=== PATIENT | female | born 1955 | race Caucasian/White ===

== ENCOUNTER 2019-11-01 10:58 | Outpatient (CLI) | payer OTHER, SELFPAY ==
--- NOTE | ~2019-11-01 | XR_ITS ---
XR lumbar spine 2-3V 11/01/2019 11:22 Indication: Low back pain Procedure: 3 views lumbar spine Comparison: 08/07/2008 Findings: There is grade 1 degenerative spondylolisthesis at L4-5. Vertebral body and disc heights ar e preserved. There is mild-moderate facet hypertrophy at L4-5 and L5-S1. No acute fracture or traumat ic malalignment. Impression: 1: No significant change to mild-moderate lower lumbar spondylosis. Reviewed, dictated and finalized at location A. Impression: 1: No significant change to mild-moderate lower lumbar spondylosis.
--- NOTE | ~2019-11-01 | XR_ITS ---
XR sacrum coccyx min 2V 11/01/2019 11:22 Indication: Low back pain Procedure: 3 views lumbar spine Comparison: No prior studies for comparison. Findings: Sacral foramen are symmetric. There are mild symmetric degenerative changes of the sacroili ac joints. Mild lower lumbar spondylosis. No fracture or traumatic malalignment. Impression: 1: No acute abnormality of the sacrum/coccyx. Reviewed, dictated and finalized at location A. Impression: 1: No acute abnormality of the sacrum/coccyx.
== END 2019-11-01 10:59 | disposition home or self-care (01) ==
LOC: ANHIMG 11:03
PROVIDERS: PCP Internal Medicine; Visit Provider Internal Medicine
DX: M54.5 Low back pain (principal); G89.29 Other chronic pain; M47.816 Spondylosis without myelopathy or radiculopathy, lumbar region
CPT/HCPCS: 72100; 72220

== ENCOUNTER 2019-11-17 12:31 | Outpatient (CLI) | payer OTHER, SELFPAY ==
--- NOTE | ~2019-11-17 | MR_ITS ---
EXAMINATION: MR lumbar spine wo con EXAM DATE: 11/17/2019 14:18 INDICATION: Low back pain, sciatica left-sided. Left leg numbness. TECHNIQUE: Multi-sequential, multiplanar MR images of the lumbar spine were obtained without contrast . Sagittal T1, T2, T2 fat saturation images. Axial T2 weighted images. Comparison is made to prior examination from 09/28/2011. FINDINGS: There is 3 mm anterolisthesis L4 on L5. Mild diffuse loss of vertebral body heights central ly. Small Schmorl's nodes at T12-L1 and L1-2. No acute compression fractures. The conus medullaris te rminates at the L1 level and has normal signal intensity and morphology. There are no suspicious mar row signal abnormalities. Paraspinal soft tissue is unremarkable. Level by level evaluation: T12-L1: Disc does not extend beyond the endplate margin. Facet arthropathy: Mild. Neural foraminal stenosis: No stenosis. Central canal stenosis: No stenosis. L1-L2: Disc does not extend beyond the endplate margin. Facet arthropathy: Minimal. Neural foraminal stenosis: No stenosis. Central canal stenosis: No stenosis. L2-L3: There is a minimal diffuse disc bulge. Facet arthropathy: Mild. Neural foraminal stenosis: No stenosis. Central canal stenosis: No stenosis. L3-L4: There is a mild diffuse disc bulge. Facet arthropathy: Moderate . Ligamentum flavum enlargement. Neural foraminal stenosis: Mild right. Central canal stenosis: Mild to moderate. L4-L5: There is a moderate diffuse disc bulge. Facet arthropathy: Severe . Ligamentum flavum enlargement. Neural foraminal stenosis: Mild to moderate bilateral. Central canal stenosis: Severe. L5-S1: There is a mild diffuse disc bulge. Facet arthropathy: Mild to moderate. Neural foraminal stenosis: Moderate right, mild to moderate left. Central canal stenosis: Mild. Compared to 2012, mild interval progression in the spondylosis, and the severe central canal stenosis at L4-5. IMPRESSION: 1. L4-5 severe central canal stenosis. 2. Otherwise mild to moderate lumbar spondylosis. Reviewed, dictated and finalized at location A.
== END 2019-11-17 12:32 | disposition home or self-care (01) ==
PROVIDERS: PCP Internal Medicine; Visit Provider Internal Medicine
DX: M54.42 Lumbago with sciatica, left side (principal); G89.29 Other chronic pain; M47.816 Spondylosis without myelopathy or radiculopathy, lumbar region; M48.061 Spinal stenosis, lumbar region without neurogenic claudication
CPT/HCPCS: 72148

== ENCOUNTER 2020-07-25 08:14 | Outpatient (CLI) | payer OTHER, SELFPAY ==
--- NOTE | ~2020-07-25 | MM_ITS ---
EXAMINATION: MM screening [facility] BI w [facility] HISTORY: Screening TECHNIQUE: Craniocaudal and mediolateral oblique 3-D tomosynthesis images were obtained and synthetic 2-D images were generated. CAD analysis was submitted and interpreted. COMPARISON: Comparison to multiple prior studies sequentially, with oldest reviewed study dated 02/09. BREAST PARENCHYMAL COMPOSITION: The breasts are heterogenously dense, which may obscure small masses. FINDINGS: There is no evidence of suspicious mass, calcification, or architectural distortion to sugg est malignancy in either breast. There has been no suspicious interval change. IMPRESSION: 1. No mammographic evidence of malignancy. 2. Recommend routine screening mammography in one year. BI-RADS Category 1: Negative Reviewed, dictated and finalized at location A. BALL COACH
== END 2020-07-25 08:15 | disposition home or self-care (01) ==
LOC: ANHIMG 08:17
PROVIDERS: PCP Internal Medicine; Visit Provider Advanced Practice Midwife
DX: Z12.31 Encounter for screening mammogram for malignant neoplasm of breast (principal)
CPT/HCPCS: 77063; 77067

== ENCOUNTER 2020-10-12 07:30 | Outpatient (CLI) | payer OTHER, SELFPAY ==
--- NOTE | ~2020-10-12 | MR_ITS ---
EXAMINATION: MR lumbar spine wo con DATE: 10/12/2020 08:22 INDICATION: Spondylolisthesis at L4-L5. Back pain. TECHNIQUE: Magnetic resonance imaging (MRI) of the lumbar spine was performed without intravenous con trast. Sequences included sagittal T2-weighted FSE, sagittal T2-weighted FS FSE, sagittal T1-weighted FSE, and axial T2-weighted FSE. COMPARISON: Lumbar spine MRI 11/17/2019 FINDINGS: There is 6 degrees dextrocurvature of thoracolumbar spine. There is 4 mm anterolisthesis of L4 on L5. There are Schmorl's nodes of the inferior endplates of T12 and L1 vertebral bodies. Interv ertebral disc heights are normal. The distal spinal cord signal intensity is normal. The conus medull vladimir is at L1. There is a 12 mm cyst in left kidney. The following disc levels are specifically discu ssed: L1-L2: The disc does not extend beyond the endplate margin. There is no facet joint osteoarthritis. T here is no neural foraminal stenosis. There is no central canal stenosis. L2-L3: There is a right foraminal protrusion. There is mild bilateral facet joint osteoarthritis. The re is mild right neural foraminal stenosis. There is no central canal stenosis. L3-L4: The disc is bulging. There is severe bilateral facet joint osteoarthritis. There is hypertroph y of the ligamentum flavum. There is mild bilateral neural foraminal stenosis. There is mild central canal stenosis. L4-L5: The disc is bulging and has an annular fissure. There is severe bilateral facet joint osteoart hritis. There is hypertrophy of the ligamentum flavum. There is moderate right and mild left neural f oraminal stenosis. There is severe central canal stenosis. L5-S1: The disc is bulging. There is severe right and moderate left facet joint osteoarthritis. There is mild bilateral neural foraminal stenosis. There is mild central canal stenosis. IMPRESSION: 1. Persistent severe central canal stenosis at L4-L5. 2. Stable otherwise moderate lumbar spondylosis. Reviewed, dictated and finalized at location B.
== END 2020-10-12 07:31 | disposition home or self-care (01) ==
PROVIDERS: PCP Internal Medicine; Visit Provider Neurological Surgery
DX: M43.16 Spondylolisthesis, lumbar region (principal); M47.896 Other spondylosis, lumbar region
CPT/HCPCS: 72148

== ENCOUNTER 2020-10-21 13:42 | Outpatient (CLI) | payer OTHER, SELFPAY ==
--- NOTE | ~2020-10-21 | US_ITS ---
US renal BI 10/21/2020 14:18 Procedure: Realtime transabdominal ultrasound of the kidneys and bladder. Indication: Renal cysts Comparison: MRI dated 10/12/2020 Findings: Renal echotexture is normal bilaterally without hydronephrosis, contour deforming mass or r enal calculus. The right kidney measures 8.7 cm and left kidney measures 10.8 cm. There is a 1.3 cm l eft renal cyst. Bladder within normal limits. Impression: 1: Left renal cyst measuring 1.3 cm. Reviewed, dictated and finalized at location B. Impression: 1: Left renal cyst measuring 1.3 cm.
== END 2020-10-21 13:43 | disposition home or self-care (01) ==
PROVIDERS: PCP Internal Medicine; Visit Provider Internal Medicine
DX: N28.1 Cyst of kidney, acquired (principal)
CPT/HCPCS: 76775

== ENCOUNTER → 2021-02-13 08:34 | Outpatient (CLI) | payer OTHER, SELFPAY ==
[2021-02-14 06:40] LABS: SARS-CoV-2 RNA PCR Negative
== END ==
PROVIDERS: PCP Internal Medicine; Visit Provider Internal Medicine
DX: R68.89 Other general symptoms and signs (principal); Z20.822 Contact with and (suspected) exposure to COVID-19
CPT/HCPCS: C9803; U0003; U0005

== ENCOUNTER 2021-05-14 14:40 | Outpatient (CLI) | payer OTHER, SELFPAY ==
--- NOTE | ~2021-05-14 | XR_ITS ---
EXAMINATION: XR hip BI 2V w AP pelvis DATE: 05/14/2021 15:02 INDICATION: Pain in unspecified hip. TECHNIQUE: An anteroposterior view of the pelvis and 2 views of each hip were obtained. COMPARISON: None. FINDINGS: Bone alignment is normal. No fracture. There are changes of posterior fusion procedure in l umbar spine. There is mild osteoarthritis of the hips. IMPRESSION: 1. Mild osteoarthritis of the hips. Reviewed, dictated and finalized at location A. SECURITY CONSULTING DIRECTOR
== END 2021-05-14 14:41 | disposition home or self-care (01) ==
LOC: ANHIMG 14:45
PROVIDERS: PCP Internal Medicine; Visit Provider Internal Medicine
DX: M16.0 Bilateral primary osteoarthritis of hip (principal)
CPT/HCPCS: 73521

== ENCOUNTER 2021-09-07 07:56 | Outpatient (CLI) | payer OTHER, SELFPAY ==
--- NOTE | ~2021-09-07 | DEXA_ITS ---
Bone Density Report Name: JEFFREY CARDONA Age: 66 Sex: Female Ethnicity: White Date of : 1955 Indication: postmenopausal osteoporosis; parental hip fracture; height loss; prior fracture; Referring Provider: MARISABEL EUGENE Study: Bone densitometry was performed. Exam Date: September 07, 2021 Accession number: [id number] Bone Density: Region BMD T-score Z-score Classification AP Spine (L1, L2) 0.532 -4.1 -2.4 Osteoporosis Femoral Neck (Left) 0.557 -2.6 -1.2 Osteoporosis Total Hip (Left) 0.652 -2.4 -1.2 Osteopenia Total Hip Bilateral Avg 0.627 -2.6 -1.4 Osteoporosis Femoral Neck (Right) 0.515 -3.0 -1.5 Osteoporosis Total Hip (Right) 0.601 -2.8 -1.6 Osteoporosis World Health Organization criteria for BMD impression classify patients as: Normal (T-score at or above -1.0), Osteopenia (T-score between -1.0 and -2.5), or Osteoporosis (T-score at or below -2.5). 10-year Fracture Risk: FRAX not reported because: Some T-score for Spine Total or Hip Total or Femoral Neck at or below -2.5 Previous Exams: Region Exam Age BMD T-score BMD Change BMD Change Date g/cm2 vs Baseline vs Previous AP Spine(L1, L2) 09/07/2021 66 0.532 -4.1 -0.217(-28.9%) -0.156(-22.7%) 01/21/2017 61 0.688 -2.6 -0.061(-8.1%)# -0.061(-8.1%)# 02/09/2013 57 0.749 -2.1 Total Hip(Left) 09/07/2021 66 0.652 -2.4 -0.046(-6.6%)# -0.052(-7.4%)* 01/21/2017 61 0.704 -2.0 0.006(0.9%)# 0.006(0.9%)# 02/09/2013 57 0.698 -2.0 Total Hip(Right) 09/07/2021 66 0.601 -2.8 -0.088(-12.8%) -0.098(-14.1%) 01/21/2017 61 0.699 -2.0 0.010(1.4%)# 0.010(1.4%)# 02/09/2013 57 0.689 -2.1 *Denotes significance at 95% confidence level, LSC for AP Spine = 0.022 g/cm2, LSC for Total Hip = 0.027 g/cm2 Clinical Information Provided by Patient: Has had a low trauma fracture Parent has had a hip fracture Has used the following medications: Vitamin D, Calcium Patient maximum height was 68 Menopause Age: 56 Drinks caffeinated beverages Onset of menses at age 15 Number of children 3 Impression: The patient has established osteoporosis, based on the Total Spine T-score and the existence of a prior fracture. The patient has risk factors, including: parental hip fracture, previous fracture. The BMD for the AP Spine(L1, L2) decreased, changing by -22.7% since the last DXA exam. The BMD for the Total Hip(Left) decreased, changing by -7.4% since the last DXA exam. The BMD for the Total Hip(Right
== END 2021-09-07 07:57 | disposition home or self-care (01) ==
LOC: ANHIMG 07:58
PROVIDERS: PCP Internal Medicine; Visit Provider Internal Medicine
DX: Z78.0 Asymptomatic menopausal state (principal); M81.0 Age-related osteoporosis without current pathological fracture; M85.852 Other specified disorders of bone density and structure, left thigh
CPT/HCPCS: 77080

== ENCOUNTER 2021-11-17 09:46 | Outpatient (CLI) | payer OTHER, SELFPAY ==
--- NOTE | ~2021-11-17 | XR_ITS ---
EXAM: XR sinus min 3V DATE: 11/17/2021 10:24 HISTORY: R09.81 - Nasal congestion x5 days . COMPARISON: None available. FINDINGS: Normal mineralization. No fracture or dislocation. No lytic or blastic lesion. TMJs grossl y aligned. Aerated spaces are clear. No erosion or periosteal change. Soft tissues within normal limi ts. IMPRESSION: No acute osseous finding. No radiographic evidence of sinus pathology. Reviewed, dictated and finalized at location K. IMPRESSION: No acute osseous finding. No radiographic evidence of sinus patholo gy.
--- NOTE | ~2021-11-17 | XR_ITS ---
EXAMINATION: XR chest 2V 11/17/2021 10:25 INDICATION: Acute upper respiratory infection PROCEDURE: 2 view chest COMPARISON: 09/02/2015 FINDINGS: The lungs are clear. The cardiomediastinal silhouette is within normal limits. There are no pleural effusions. There is no pneumothorax suspected. There are surgical changes partially visu alized in the lumbar spine. IMPRESSION: 1: NO ACUTE CARDIOPULMONARY DISEASE. Reviewed, dictated and finalized at location A.
[2021-11-17 10:00] LABS: Basophils Percent Auto 0.2 % (0.2-1.2); Eosinophils Absolute Auto 0.3 K/mm3 (0-0.3); Eosinophils Percent Auto 4.6 % (0-4.4); Hematocrit 36.9 % (37.0-47.0); Hemoglobin 11.8 g/dL (12.0-15.0); Immature Granulocyte Absolute 0.01 K/mm3 (0.00-0.031); Immature Granulocyte Percent A 0.2 % (0-0.5); Lymphocytes Absolute Auto 1.54 K/mm3 (0.9-3.2); Lymphocytes Percent Auto 26.3 % (18.3-44.2); Mean Corpuscular Hemoglobin 29.8 pg (26-34); Mean Corpuscular Volume 93.2 fl (80-100); Monocytes Absolute Auto 0.6 K/mm3 (0.1-0.6); Monocytes Percent Auto 9.7 % (2.6-8.5); Neutrophils Absolute Auto 3.5 K/mm3 (1.3-6.7); Platelet Count Result 244 k/mm3 (150-375); Red Blood Count 3.96 M/mm3 (4.2-5.4); White Blood Count 5.9 K/mm3 (4.5-10.0)
[2021-11-17 10:12] LABS: Anion Gap 7 mmol/L (8-16); Blood Urea Nitrogen 13 mg/dL (7-17); Carbon Dioxide 30 mmol/L (22-30); Chloride 105 mmol/L (98-107); Estimated Glomerular Filt Rate > 60; Glucose 91 mg/dL (65-110); Potassium 4.5 mmol/L (3.4-5.0); Sodium 142 mmol/L (137-145)
== END 2021-11-17 09:47 | disposition home or self-care (01) ==
PROVIDERS: PCP Internal Medicine; Visit Provider Internal Medicine
DX: J06.9 Acute upper respiratory infection, unspecified (principal); R69 Illness, unspecified; J32.9 Chronic sinusitis, unspecified; J34.89 Other specified disorders of nose and nasal sinuses; R09.81 Nasal congestion; R05.9 Cough, unspecified
CPT/HCPCS: 36415; 70220; 71046; 80048; 85025

== ENCOUNTER 2022-05-31 08:34 | Outpatient (CLI) | payer MEDICARE, OTHER, SELFPAY ==
--- NOTE | ~2022-05-31 | MM_ITS ---
EXAMINATION: MM screening [facility] BI w victoria HISTORY: Screening mammogram TECHNIQUE: Craniocaudal and mediolateral oblique 3-D tomosynthesis images were obtained and synthetic 2-D images were generated. CAD analysis was submitted and interpreted. COMPARISON: 07/25/2020, 01/21/2017, 06/03/2015 BREAST PARENCHYMAL COMPOSITION: The breasts are heterogeneously dense, which may obscure small masses . FINDINGS: No suspicious mass, calcification, or architectural distortion are identified in either rajinder ast to suggest malignancy. There has been no suspicious interval change. IMPRESSION: 1. No mammographic evidence of malignancy. 2. Recommend routine screening mammography in one year. BI-RADS Category 1: Negative Reviewed, dictated and finalized at location A. SCREEN OPERATOR
== END 2022-05-31 08:35 | disposition home or self-care (01) ==
PROVIDERS: PCP Internal Medicine; Visit Provider Internal Medicine
DX: Z12.31 Encounter for screening mammogram for malignant neoplasm of breast (principal)
CPT/HCPCS: 77063; 77067

== ENCOUNTER 2023-01-12 12:57 | Outpatient (CLI) | payer MEDICARE, OTHER, SELFPAY ==
--- NOTE | ~2023-01-12 | XR_ITS ---
XR chest 2V DATE: 01/12/2023 13:30 INDICATION: Sharp chest pain with breathing TECHNIQUE: PA and lateral views COMPARISON: 11/17/2021 PA and lateral chest FINDINGS: Normal heart size. No hilar or mediastinal enlargement. The lungs are moderately hyperinflated. No pulmonary infiltrate or consolidation, pleural effusion or pulmonary vascular congestion or pneumothorax is detected. Mild thoracic dextroscoliosis and degenerative spurring. Osteopenia. Pedicle screws and rods are noted for lumbar spinal fusion at L3. IMPRESSION: Moderate hyperinflation; no active cardiac pulmonary disease or pneumothorax Reviewed, dictated and finalized at location B. IMPRESSION: Moderate hyperinflation; no active cardiac pulmonary disease or pne umothorax
--- NOTE | ~2023-01-12 | XR_ITS ---
XR thoracic spine 3V DATE: 01/12/2023 13:30 INDICATION: Sharp pain with breath. TECHNIQUE: Upright AP, lateral and swimmer views COMPARISON: None FINDINGS: There is osteopenia. There is degenerative disc disease in the lower cervical spine. There is mild thoracic dextroscoliosis. There is degenerative spurring of the thoracic spine. There is mild loss of height and anterior wedging and cupping of the inferior vertebral endplate of T 12, likely due to mild old compression fracture. No other fracture or bone destruction is noted. The thoracic pedicles appear intact. No paraspinal soft tissue thickening. Pedicle screws and rods are noted at L3. IMPRESSION: Probably chronic mild T12 compression fracture deformity Osteopenia Mild dextroscoliosis of the thoracic spine Mild degenerative spurring of the thoracic spine Lumbar spinal posterior surgical fusion Degenerative disc disease in the lower cervical spine Reviewed, dictated and finalized at location B.
== END 2023-01-12 12:58 | disposition home or self-care (01) ==
PROVIDERS: PCP Internal Medicine; Visit Provider Internal Medicine
DX: R07.81 Pleurodynia (principal); M85.88 Other specified disorders of bone density and structure, other site; M50.30 Other cervical disc degeneration, unspecified cervical region; Z98.1 Arthrodesis status
CPT/HCPCS: 71046; 72072

== ENCOUNTER 2023-04-15 08:01 | Outpatient (CLI) | payer MEDICARE, OTHER, SELFPAY ==
--- NOTE | ~2023-04-15 | XR_ITS ---
XR shoulder LT min 2V DATE: 04/15/2023 08:18 INDICATION: Pain, limited range of motion. No injury. TECHNIQUE: 4 views COMPARISON: None FINDINGS: There is diffuse osteopenia. No fracture or dislocation, periosteal reaction or bone destruction or abnormal soft tissue calcifica tion. IMPRESSION: Osteopenia Reviewed, dictated and finalized at location B. IMPRESSION: Osteopenia
== END 2023-04-15 08:02 | disposition home or self-care (01) ==
PROVIDERS: PCP Internal Medicine; Visit Provider Internal Medicine
DX: M77.8 Other enthesopathies, not elsewhere classified (principal); M85.80 Other specified disorders of bone density and structure, unspecified site
CPT/HCPCS: 73030

== ENCOUNTER 2023-05-06 08:44 | Outpatient (CLI) | payer MEDICARE, OTHER, SELFPAY ==
--- NOTE | ~2023-05-06 | DEXA_ITS ---
Bone Density Report Name: JEFFREY CARDONA Age: 68 Sex: Female Ethnicity: White Date of : 1955 Indication: postmenopausal osteoporosis; monitoring treatment; height loss; prior fracture; Referring Provider: MARISABEL EUGENE Study: Bone densitometry was performed. Exam Date: May 06, 2023 Accession number: [id number] Bone Density: Region BMD T-score Z-score Classification AP Spine(L1, L2) 0.632 -3.2 -1.4 Osteoporosis Femoral Neck (Left) 0.586 -2.4 -0.8 Osteopenia Total Hip (Left) 0.663 -2.3 -1.0 Osteopenia Femoral Neck (Right) 0.589 -2.3 -0.8 Osteopenia Total Hip (Right) 0.613 -2.7 -1.4 Osteoporosis Total Hip Mean 0.638 -2.5 -1.2 Osteoporosis World Health Organization criteria for BMD impression classify patients as: Normal (T-score at or above -1.0), Osteopenia (T-score between -1.0 and -2.5), or Osteoporosis (T-score at or below -2.5). 10-year Fracture Risk: FRAX not reported because: Some T-score for Spine Total or Hip Total or Femoral Neck at or below -2.5 Prior hip or vertebral fracture Treated for osteoporosis Previous Exams: Region Exam Age BMD T-score BMD Change BMD Change Date g/cm2 vs Baseline vs Previous AP Spine (L1-L2) 05/06/2023 68 0.632 -3.2 -0.117 (-15.6% 0.100 (18.8%)* 09/07/2021 66 0.532 -4.1 -0.217 (-28.9% -0.156 (-22.7% 01/21/2017 61 0.688 -2.6 -0.061 (-8.1%) -0.061 (-8.1%) 02/09/2013 57 0.749 -2.1 Total Hip(Left) 05/06/2023 68 0.663 -2.3 -0.034 (-4.9%) 0.012 (1.8%) 09/07/2021 66 0.652 -2.4 -0.046 (-6.6%) -0.052 (-7.4%) 01/21/2017 61 0.704 -2.0 0.006 (0.9%)# 0.006 (0.9%)# 02/09/2013 57 0.698 -2.0 Total Hip(Right) 05/06/2023 68 0.613 -2.7 -0.076 (-11.1% 0.012 (2.0%) 09/07/2021 66 0.601 -2.8 -0.088 (-12.8% -0.098 (-14.1% 01/21/2017 61 0.699 -2.0 0.010 (1.4%)# 0.010 (1.4%)# 02/09/2013 57 0.689 -2.1 *Denotes significance at 95% confidence level, LSC for AP Spine = 0.022 g/cm2, LSC for Total Hip = 0.027 g/cm2 # Denotes dissimilar scan types or analysis methods Clinical Information Provided by Patient: Have had a previous hip or vertebral fracture Has had a low trauma fracture Is being treated for osteoporosis Has used the following medications: Fosamax (i.e. alendronate), Vitamin D, Calcium Patient maximum height was 68 Drinks caffeinated beverages Onset of menses at age 15 Number of children 3 Impression: The patient has est
== END 2023-05-06 08:45 | disposition home or self-care (01) ==
LOC: ANHIMG 08:46
PROVIDERS: PCP Internal Medicine; Visit Provider Internal Medicine
DX: M81.0 Age-related osteoporosis without current pathological fracture (principal); Z78.0 Asymptomatic menopausal state
CPT/HCPCS: 77080

== ENCOUNTER 2023-07-04 12:58 | Outpatient (CLI) | payer MEDICARE, OTHER, SELFPAY | END 2023-07-04 12:59 | disposition home or self-care (01) | LOC: ANHAUDIO 13:00 | PROVIDERS: PCP Internal Medicine; Visit Provider Internal Medicine | DX: H90.3 Sensorineural hearing loss, bilateral (principal) | CPT/HCPCS: 92557; 92567 ==

== ENCOUNTER 2024-02-07 10:00 | Outpatient (CLI) | payer MEDICARE, OTHER, SELFPAY ==
[2024-02-07 11:35] LABS: Add Urine Microscopic? YES; Appearance Urine Clear (Clear); Bacteria Urine None Seen /hpf; Bilirubin Urine Negative (Negative); Blood Urine 2+ (Negative); Color Urine Yellow (Yellow); Glucose Urine UA Negative (Negative); Ketones Urine Negative (Negative); Leukocyte Esterase Ur 2+ LEU/UL (Negative); Need Manual Microscopic Reviewed; Nitrate Urine Negative (Negative); Non Pathogenic Casts 0-2; Protein Urine Negative (Negative); RBC Urine 0-2 /hpf (0-2); Specific Grav Ur 1.004 (1.001-1.035); Squamous Epithelial Cell Urine None Seen /hpf (Few); Urobilinogen Urine 0.2 mg/dL (<2.0); WBC Urine 21-50 /hpf (0-3)
== END 2024-02-07 10:01 | disposition home or self-care (01) ==
LOC: ANHLAB 10:04
PROVIDERS: PCP Internal Medicine; Visit Provider Internal Medicine
DX: N39.0 Urinary tract infection, site not specified (principal)
CPT/HCPCS: 81001; 87077; 87086; 87088; 87186

== ENCOUNTER 2024-02-23 09:06 | Outpatient (CLI) | payer MEDICARE, OTHER, SELFPAY ==
[2024-02-23 09:30] LABS: Basophils Percent Auto 1.3 % (0.2-1.2); Eosinophils Absolute Auto 0.2 K/mm3 (0-0.3); Eosinophils Percent Auto 4.9 % (0-4.4); Immature Granulocyte Absolute 0.01 K/mm3 (0.00-0.031); Immature Granulocyte Percent A 0.3 % (0-0.5); Lymphocytes Percent Auto 32.7 % (18.3-44.2); Mean Corpuscular HGB Conc 32.4 g/dl (32-36); Mean Corpuscular Hemoglobin 30.8 pg (26-34); Mean Corpuscular Volume 94.9 fl (80-100); Monocytes Absolute Auto 0.3 K/mm3 (0.1-0.6); Monocytes Percent Auto 10.1 % (2.6-8.5); Neutrophils Absolute Auto 1.6 K/mm3 (1.3-6.7); Neutrophils Percent Auto 50.7 % (45.5-73.1); Platelet Count Result 235 k/mm3 (150-375); Red Cell Distribution Width 12.8 % (11.5-14.5); White Blood Count 3.1 K/mm3 (4.5-10.0)
[2024-02-23 13:34] LABS: Iron 76 ug/dL (37-170)
[2024-02-23 13:40] LABS: Alanine Aminotransferase 46 U/L (6-35); Albumin Level 4.5 g/dL (3.5-5.1); Alkaline Phosphatase 71 U/L (38-126); Anion Gap 10 mmol/L (4-12); Aspartate Amino Transferase 51 U/L (14-36); Bilirubin,Total 0.7 mg/dL (0.2-1.3); Blood Urea Nitrogen 16 mg/dL (7-17); Calcium 9.5 mg/dL (8.4-10.2); Carbon Dioxide 30 mmol/L (22-30); Chloride 99 mmol/L (98-107); Estimated Glomerular Filt Rate > 60; Glucose 80 mg/dL (65-110); Lactate Dehydrogenase 201 U/L (120-246); Potassium 4.3 mmol/L (3.4-5.0); Sodium 139 mmol/L (137-145)
[2024-02-23 14:21] LABS: Percent Iron Saturation 24 % (20-50)
[2024-02-23 14:46] LABS: Folic Acid 19.8 ng/mL (2.76->20)
[2024-02-28 09:44] LABS: Methylmalonic Acid 178 nmol/L (69-390)
[2024-03-01 14:49] LABS: Soluble Transferrin Receptor 1.05 mg/L (0.76-1.76)
== END 2024-02-23 09:07 | disposition home or self-care (01) ==
LOC: ANHLAB 09:09
PROVIDERS: Nurse Practitioner Family; PCP Internal Medicine; Visit Provider Internal Medicine Hematology & Oncology
DX: D72.819 Decreased white blood cell count, unspecified (principal); D50.9 Iron deficiency anemia, unspecified
CPT/HCPCS: 36415; 80053; 82607; 82728; 82746; 83540; 83550; 83615; 83921; 84238; 85025; 86038; 86039

== ENCOUNTER 2024-03-01 08:27 | Outpatient (CLI) | payer MEDICARE, OTHER, SELFPAY ==
--- NOTE | ~2024-03-01 | US_ITS ---
Abdominal Sonogram: Real-time sonographic imaging of the abdomen was performed. Clinical History: Leukopenia Findings: The liver appears normal with no evidence of mass lesion or bile duct dilatation. Main por baljit vein demonstrates normal direction of flow. The spleen is normal in size without evidence of foca l lesion. The gallbladder is well distended, and appears normal with no evidence of gallstone or wal l thickening. The common bile duct measures 3 mm. The visualized pancreas, aorta, and IVC are unrema rkable. The right kidney measures 9.6 cm in length and the left kidney measures 11.9 cm. There is n o hydronephrosis or renal calculus. Impression: Unremarkable abdominal ultrasound. Reviewed, dictated and finalized at location . Impression: Unremarkable abdominal ultrasound.
== END 2024-03-01 08:28 | disposition home or self-care (01) ==
PROVIDERS: PCP Internal Medicine; Visit Provider Nurse Practitioner Family
DX: D72.819 Decreased white blood cell count, unspecified (principal)
CPT/HCPCS: 76700

== ENCOUNTER 2024-06-18 15:20 | Outpatient (CLI) | payer MEDICARE, OTHER, SELFPAY ==
--- NOTE | ~2024-06-18 | MM_ITS ---
EXAMINATION: MM screening [facility] BI w [facility] HISTORY: Screening TECHNIQUE: Craniocaudal and mediolateral oblique 3-D tomosynthesis images were obtained and synthetic 2-D images were generated. CAD analysis was submitted and interpreted. COMPARISON: 05/31/2022 and 07/25/2020 BREAST PARENCHYMAL COMPOSITION: The breasts are heterogeneously dense, which may obscure small masses . FINDINGS: Punctate calcifications detected bilaterally, stable and benign in appearance. Stable parenchymal pattern without suspicious microcalcifications, architectural distortion, discrete masses or significant asymmetry. IMPRESSION: 1. No mammographic evidence of malignancy. 2. Recommend routine screening mammography in one year. BI-RADS Category 2: Benign finding(s). Reviewed, dictated and finalized at location A. EGE ASSOCIATE
== END 2024-06-18 15:21 | disposition home or self-care (01) ==
LOC: ANHIMG 15:22
PROVIDERS: PCP Internal Medicine Hematology & Oncology; Visit Provider Internal Medicine
DX: Z12.31 Encounter for screening mammogram for malignant neoplasm of breast (principal)
CPT/HCPCS: 77063; 77067

== ENCOUNTER 2024-09-24 11:27 | Outpatient (CLI) | payer MEDICARE, OTHER, SELFPAY ==
--- NOTE | ~2024-09-24 | XR_ITS ---
XR knee RT min 4V 09/24/2024 11:53 Indication: Right knee pain Procedure: 4 views right knee Comparison: No prior studies for comparison. Findings: There is mild osteoarthritis of the knee. Small joint effusion. No fracture or traumatic ma lalignment. No foreign bodies. There is normal mineralization. Impression: 1: Mild osteoarthritis of the right knee. 2: No acute fracture. 3: Small joint effusion. Reviewed, dictated and finalized at location A. Impression: 1: Mild osteoarthritis of the right knee. 2: No acute fracture. 3: Small joint effusion.
--- OUTSIDE RECORDS SUMMARY | 2024-09-24 13:02 | XMS_ITS | Referral Summary ---
Author Organization [facility] C Address [address] [place] [address] Care Team Providers Care Vacuum Repairer Name Role Phone Hernan Yuan MD Primary Care Provider [phone] Allergies Active Allergy Reactions Criticality Noted Date Comments Vancomycin Itching Low 01/20/2021 Facial itching, facial redness and scalp itching Medications rosuvastatin (CRESTOR) 20 mg tablet Take 20 mg by mouth nightly Active escitalopram (LEXAPRO) 20 mg tablet Take 20 mg by mouth nightly Active aspirin 81 mg enteric coated tablet Take 81 mg by mouth daily Active calcium carb and citrate-vitD3 600 mg-12.5 mcg (500 unit) tablet extended release Take 1 tablet by mouth daily Active cyanocobalamin (Vitamin B-12) 1,000 mcg tabletIndicatio ns:Prevention of Vitamin B12 Deficiency Take 1,000 mcg by mouth daily Active krill oil/omega-3/dha /epa (FISH OIL WITH KRILL ORAL) Take 1 tablet by mouth daily Active alendronate (FOSAMAX) 70 mg tablet Take 70 mg by mouth every 7 days Take in the morning with a full glass of water, on an empty stomach, and do not take anything else by mouth or lie down for the next 30 min. Active HYDROcodone-jud taminophen (NORCO) 5-325 mg per tabletIndicatio ns:Pain Take 1-2 tablets by mouth every 6 (six) hours as needed for pain 56 tablet 12/24/2021 Active docusate sodium (COLACE) 100 mg capsuleIndicati ons:constipatio n Take 1 capsule (100 mg total) by mouth 2 (two) times a day 12/25/2021 Active methylPREDNISol one (MEDROL DOSEPACK) 4 mg Dosepack Take as directed on package 1 packet 03/22/2022 Active Active Problems Problem Noted Date Diagnosed Date Pseudoarthrosis of lumbar spine 12/24/2021 Pseudarthrosis after fusion or arthrodesis 08/31 Assessment & Plan (08/31/2021 9:51 AM APPLICATION DBA): Ms. Pickens has pseudoarthrosis of L3-5 with lucency surrounding the screws. Discussed L3-4 and L4-5 Extreme Lumbar Interbody Fusion surgery in detail with the patient along with postop recovery and activity restrictions. Discussed the appropriateness of obtaining a new bone density study with PCP and possibly seeing Endocrinology to discuss bone health meds. Discussed to hold PT has it aggravating patient's symptoms. Discussed use of Neurontin for neuropathic pain and appropriate use of this medication reviewed with the patient. Also discussed possibility of pain management and injections for until patient is a candidate for surgery, typically 3 months after starting osteoporosis medication. Patient verbalizes understanding of the above plan. Additional printed resources including CT lumbar report given to the patient. Status post lumbar spinal fusion 04/29/2021 Assessment & Plan (02/03/2022 9:54 AM CDT): PLAN: - May occasionally bend, twist stoop and overhead left with no more than 10 lb lifting. -After 6 weeks she may start physical therapy/aqua therapy/home exercise program -instructed patient to continue holding anti-inflammatories to include ibuprofen, Aleve, meloxicam - Continue bone growth stimulator/brace. - After 6 weeks, patient may resume NSAIDs, may increase activity as tolerated, wean off bone growth stimulator and brace. WORK STATUS: Not working FOLLOW UP APPT: With Dr. Powers in 4.5 months with Flexion/Extension Lumbar spine films. Assessment & Plan (08/03/2021 9:30 AM APPLICATION DBA): Ms. Pickens is status post L4-5 decompression and fusion with relief of her radicular leg symptoms and neurogenic claudication. She has persistent back and buttock pain as well as a component of piriformis syndrome. The etiology is not completely clear. We will get a CT of the lumbar spine to evaluate for screw placement, fusion and any lucency around the hardware. We will speak to her by phone about the results. Assessment & Plan (04/29/2021 2:48 PM CDT): Ms. Pickens is status post L3-L5 decompression and fusion with great relief of her leg symptoms. She reports that she was doing very well until recently developing severe back pain, left greater than right which wraps around her hips. She has no associated leg symptoms. Current x-rays look good. We discussed that this may be related to her back musculature or pain in her pelvis. We will initially give a script for physical therapy and plan on a follow-up appointment in 4 months time. If she has no improvement, she will call the office and we would get some imaging in the interim. Spondylolisthesis at L4-L5 level 10/01/2020 Assessment & Plan (10/01/2020 11:04 AM CDT): Ms. Pickens has a grade 1 spondylolisthesis of L4 on L5 with severe facet arthropathy and central canal and lateral recess stenosis. She has symptoms of neurogenic claudication and radiculopathy on the left that significantly limit her activities of daily living. We discussed all options including medications, therapy, injections and surgery. She wishes to proceed with surgery. We will arrange for L4-5 laminectomy and fusion at her earliest convenience. She has his significant arthropathy at other levels which is not currently symptomatic. She is aware that this should help with her leg symptoms and that she may have residual back pain due to adjacent level arthropathy. Resolved Problems Problem Noted Date Diagnosed Date Resolved Date Lumbar post-laminectomy syndrome 01/20/2021 04/29/2021 Assessment & Plan (01/20/2021 10:04 AM CDT): PLAN: - continue activity restrictions as outlined prior to surgery. - Continue bone growth stimulator/brace. - After 6 weeks, patient may resume NSAIDs, may increase activity as tolerated, wean off bone growth stimulator and brace. 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 Powers in 4.5 months with Flexion/Extension Lumbar spine films. Lumbar stenosis without neur ogenic claudication 12/11/2020 04/29/2021 Spondylolisthesis of lumbar region 10/07/2020 04/29/2021 Overview (10/07/2020): Added automatically from request for surgery [id number] Immunizations Immunization Administration Dates Next Due Influenza, Quadrivalent, Mima l Culture-based MDCK, Preservative Free, Antibiotic Free, Intramuscular 04/05/2019 Influenza, Quadrivalent, Rec ombinant, Egg Free, Preservative Free, Intramuscular 05/08/2018 Influenza, Quadrivalent, Spl it, Preservative Free, Intramuscular 04/01/2021,03/15/2020 Influenza, Trivalent, IM (MDV) 06/06/2012 Influenza, Unspecified 04/23/2014,06/06/2013 Social History Tobacco Use Types Packs/Day Years Used Date Smoking Tobacco: Never Smokeless Tobacco: Never Social Connection and Isolat ion Panel [NHANES] Answer Date Recorded In a typical week, how many times do you talk on the phone with family, friends, or neighbors? More than three times a week 12/25/2021 How often do you get togethe r with friends or relatives? Three times a week 12/25/2021 How often do you attend chur or mormon services? 1 to 4 times per year 12/25/2021 Do you belong to any clubs o r organizations such as congregation groups, unions, fraternal or athletic groups, or school groups? No 12/25/2021 How often do you attend meet ings of the clubs or organizations you belong to? Never 12/25/2021 Are you , , di vorced, , never , or living with a partner? 12/25/2021 AUDIT-C Answer Date Recorded Q1: How often do you have a drink containing alcohol? Never 12/10/2021 Q2: How many drinks containi ng alcohol do you have on a typical day when you are drinking? Patient does not drink Q3: How often do you have si x or more drinks on one occasion? Never 12/10/2021 Overall Financial Resource Strain (CARDIA) Answe r Date Recorded How hard is it for you to pa y for the very basics like food, housing, medical care, and heating? Not very hard 12/25/2021 PHQ-2 Answer Date Recorded PHQ-2 Total Score (If total score is 3 or more points, staff should administer the PHQ-9) 0 10/01/2020 PRAPARE - Transportation Answer Date Re corded In the past 12 months, has l ack of transportation kept you from medical appointments or from getting medications? No 06/2021 In the past 12 months, has l ack of transportation kept you from meetings, work, or from getting things needed for daily living? 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 Not on file No t on file Not on file Last Filed Vital Signs Vital Sign Reading Time Taken Comments Blood Pressure 103/55 12/25/2021 9:31 AM CDT Pulse 63 12/25/2021 9:31 AM CDT Temperature 36.9 C (98.5 F) 12/25/2021 9:31 AM CDT Respiratory Rate 16 12/25/2021 9:31 AM CDT Oxygen Saturation 99% 12/25/2021 9:31 AM CDT Inhaled Oxygen Concentration - - Weight 71.9 kg (158 lb 8.2 oz) 12/24/2021 6:59 A M CDT Height 167.6 cm (5' 6 ) 12/24/2021 6:59 AM CDT Body Mass Index 25.58 12/24/2021 6:59 AM CDT Plan of Treatment Not on file Medical Devices Implanted Type Area Soft Shoe Dancer Device Identifier Shelf Expiration Date Model / Serial / Lot Melinta [id number] Inqu Paste Mix Plus Hydroelectric Operator 10cc Bone Graft Hyaluronic Acid Poly - [id number] Implanted:Qty: 1 on 12/11/2020 by Mega Powers MD at [facility] N/A: Spine Lumbar Isto Buy buy tea [id number] 05/01/2022 [id number] / / [id number] Core Link [id number] Strawn 6.5mm 40mm Spine Pedicle Screw Bone 5500 Series - [id number] Implanted:Qty: 6 on 12/11/2020 by Mega Powers MD at [facility] N/A: Spine Lumbar Core Link [id number] / / Core Link [id number] Strawn Screw Set 5500 Series - [id number] Implanted:Qty: 6 on 12/11/2020 by Mega Powers MD at [facility] N/A: Spine Lumbar Core Link [id number] / / Core Link [id number] Strawn 5.5mm 65mm Line Prebent Vadim Spinal Nonsterile 5500 Series - [id number] Implanted:Qty: 1 on 12/11/2020 by Mega Powers MD at [facility] N/A: Spine Lumbar Core Link [id number] / / Core Link [id number] Strawn 5.5mm 70mm Line Prebent Vadim Spinal Nonsterile 5500 Series - [id number] Implanted:Qty: 1 on 12/11/2020 by Mega Powers MD at [facility] N/A: Spine Lumbar Core Link [id number] / / Core Link Cage F3d Lateral 18mm X 50mm X 12mm 8 Degree [id number] - [id number] Implanted:Qty: 1 on 12/24/2021 by Mega Powers MD at [facility] N/A: Spine Lumbar Core Link [id number] 20 09/09/2024 [id number] / / [id number] Core Link Cage F3d Lateral 18mm X 50mm X 12mm 8 Degree [id number] - [id number] Implanted:Qty: 1 on 12/24/2021 by Mega Powers MD at [facility] N/A: Spine Lumbar Core Link [id number] 20 09/09/2024 [id number] 12 / / [id number] Allograft Bone Putty 2.5cc 700-392 - [id number] Implanted:Qty: 1 on 12/24/2021 by Mega Powers MD at [facility] N/A: Spine Lumbar [employer] 06/26/2024 700-025 / / [id number] Allograft Bone Putty 2.5cc -025 - [id number] Implanted:Qty: 1 on 12/24/2021 by Mega Powers MD at [facility] N/A: Spine Lumbar [employer] 06/26/2024 700-025 / / [id number] Allograft Bone Putty 2.5cc -025 - [id number] Implanted:Qty: 1 on 12/24/2021 by Mega Powers MD at [facility] N/A: Spine Lumbar [employer] 06/26/2024-025 / / [id number] Insurance [facility] CLAIMS [facility] CLAIMS COMMERCIAL GENERIC CLAIMS COMMERCIAL GENERIC Advance Directives For more information, please contact: [phone] * Full Code (Latest Code Status on File) Date Activated Date Inactivated Comments 12/24/2021 12:46 PM 12/25/2021 4:13 PM * Full Code Date Activated Date Inactivated Comments 12/11/2020 11:05 AM 12/12/2020 4:52 PM Care Teams Vacuum Repairer Relationship Specialty Start Date End Date Hernan Yuan MD [address] [facility] [address] [place] [address] PCP - General Internal Medicine 09/03/20
--- OUTSIDE RECORDS SUMMARY | 2024-09-24 13:02 | XMS_ITS | Clinical Summary ---
Author Organization [facility] Address [facility] [place] [address] Care Team Providers Care Decision Science Analyst Name Role Phone Baldev Knox MD Unavailable [phone] Sunshine Stubbs Primary Care Provider [phone] Allergies Active Allergy Reactions Criticality Noted Date Comments Vancomycin Itching Low 01/20/2021 Facial itching, facial redness and scalp itching Medications pravastatin 40 MG tablet Take 40 mg by mouth daily. 1 03/21/2017 Active [place]-3 Fatty Acids (OMEGA-3 PLUS) 1000 MG Cap Take 1,000 mg by mouth nightly at bedtime. Active calcium carbonate-vitam in D 600-400 MG-UNIT Tab Take 1 tablet by mouth nightly at bedtime. Active aspirin EC (ECOTRIN) 81 MG tablet Take 81 mg by mouth nightly at bedtime. Active vitamin B-12 1000 MCG tablet Take 1,000 mcg by mouth daily. Active sertraline 100 MG tablet Take 100 mg by mouth daily. 4 03/15/2019 Active Misc Natural Products (OSTEO BI-FLEX JOINT SHIELD) Tab Take 1 tablet by mouth daily. 04/06/2019 Active escitalopram 20 MG tablet TAKE 1 TABLET BY MOUTH DAILY 07/02/2020 Active vitamin D3, cholecalciferol , 1.25 MG (73326 UT) capsule TK 1 C PO ONCE WEEKLY FOR 8 WEEKS THEN ONCE A MONTH FOR 2 MONTHS 11/08/2019 Active ciprofloxacin 250 MG tablet Take 250 mg by mouth 2 (two) times daily. 07/02/2020 Active rosuvastatin 20 MG tablet Take 20 mg by mouth daily. 07/02/2020 Active aspirin EC (ECOTRIN) 81 MG tablet Take 81 mg by mouth daily. Active Calcium-Magnesi um-Vitamin D (CITRACAL SLOW RELEASE) 600-40-500 MG-MG-UNIT TABLET SR 24 HR Take 1 tablet by mouth daily. Active gabapentin (NEURONTIN) 300 MG capsule 08/31/2021 Active escitalopram (LEXAPRO) 20 MG tablet Take 20 mg by mouth daily. Active Active Problems Problem Noted Date Diagnosed Date Dyslipidemia 03/31/2018 PVC (premature ventricular contraction) 10/01/19 18 Heart palpitations 08/05/2017 Hyperlipidemia, mixed 08/05/2017 Chest pain 06/07/2017 Assessment & Plan (06/08/2017 12:14 PM CAR BODY INSPECTOR): Chest Pain R/O: Acute; stable VS WNL; CE neg x3; EKG showed no ST changes, Differential includes CVS, vs anxiet, MSK, or medication change. Heart Score on admission 6. ASCVD 1.5% -Repeat EKG and CE if complains of chest pain - Continue cardiac monitoring with telemetry - ASA 81mg daily; continue home pravastatin - Nitroglycerin SL 0.4mg Q5min prn for chest pain - Plan for stress test on 12 AM - Cardiology consulted, appreciate recommendations Depression 06/07/2017 Assessment & Plan (06/08/2017 7:51 AM CAR BODY INSPECTOR): Chronic; stable Hx of depression, on Citalopram 30 mg daily for 2 weeks; previously on 40mg. No SI/HI. -Continue 30 mg daily -F/u w/ PCM Abnormal EKG 06/07/2017 Immunizations Name Administration Dates Next Due Flublok (Quadrivalent) 05/08/2018 Flucelvax 6 Months+ (Prefill ed Syringe) 04/05/2019 Fluzone 6 Months+ Quad (0.5 mL Prefilled Syringe) 04/02/2022,03/15/2020 Influenza (Generic) 05/08/2018, 4,06/06/2013, 012 Influenza Adult (Generic) 04/01/2021,03/15/2020, 04/05/2019 IMedExchange (Feathr & Feathr) COVID-19 AD26 VACCINE 0.5 ML IM SUSP 09/04/2020 Family History Medical History Relation Comments Heart Attack Father Open Heart Father CHF Mother afib Mother Relation Status Comments Father Mother Social History Tobacco Use Types Packs/Day Years Used Date Smoking Tobacco: Never Smokeless Tobacco: Never Tobacco Cessation:Counseling Given: No Alcohol Use Standard Drinks/Week Comments No 0 (1 standard drink = 0.6 oz pur e alcohol) PHQ-2 Answer Date Recorded PHQ-2 Score - If the patient scores above 3, please move on to questions 3-9 2 04/02/2022 Comments No Sex and Gender Information Value Date Recorded Sex Assigned at Not on file Legal Sex Female 2:54 PM CAR BODY INSPECTOR Gender Identity Not on file Sexual Orientation Not on file Occupation Industry Job Start Date Job End Date Not on file Not on file Not on file Not on file Last Filed Vital Signs Vital Sign Reading Time Taken Comments Blood Pressure 135/77 04/02/2022 2:53 PM CDT Pulse 64 04/02/2022 2:09 PM CDT Temperature 36.6 C (97.8 F) 04/02/2022 2:09 PM CDT Respiratory Rate 20 04/02/2022 2:09 PM CDT Oxygen Saturation 100% 04/02/2022 2:09 PM CDT Inhaled Oxygen Concentration - - Weight 72.3 kg (159 lb 6.4 oz) 04/02/2022 2:09 P M CDT Height 168.9 cm (5' 6.5 ) 04/02/2022 2:09 PM CDT Body Mass Index 25.34 04/02/2022 2:09 PM CDT Plan of Treatment Health Maintenance Due Date Last Done Comments Hepatitis C 1975 DTaP, Tdap and Td Vaccines (1 - Tdap) 1976 Mammogram Screening 1997 Zoster Vaccines (1 of 2) 2007 Annual Medicare Wellness Visit 2022 Dexa Scan (General) 2022 Pneumococcal Vaccine: 65+ Years (1 of 1 - PCV) 2022 COVID-19 Vaccine (2 - season) 2024 09/04/2020 Influenza Adult (#1) 2024 04/02/2022, 04/01/2021, 03/15/2020, Additional history exists Colorectal Cancer Screening Colonoscopy (10 Years) 10/10/2029 Postponed from 1957 (Awaiting Documentation) RSV Immunization or 60+ Years (1 - 1-dose 75+ series) 2032 Meningococcal B Vaccine Aged Out No l onger eligible based on patient's age to complete this topic Meningococcal Vaccine Aged Out No nathan renee eligible based on patient's age to complete this topic RSV Immunizations Under 20 Months Aged Out No longer eligible based on patient's age to complete this topic Insurance MEDICARE [facility] Advance Directives * Full Code (Latest Code Status on File) Date Activated Date Inactivated Comments 06/17/2017 2:17 PM 06/17/2017 8:11 PM * Full Code Date Activated Date Inactivated Comments 06/07/2017 9:27 PM 06/08/2017 6:51 PM Care Teams Decision Science Analyst Relationship Specialty Start [place] [address] [place] [address] PCP - General PHYSICIAN UNIT MANAGER RN 09/09/20 Baldev Knox MD [facility]. KOR[address] [place] [id number] [place] Blood Collector CARDIOVASCULAR DISEASE 07/18/17
--- OUTSIDE RECORDS SUMMARY | 2024-09-24 13:02 | XMS_ITS | Encounter Summary ---
Author Organization [facility] Address [address] [place] [id number] Care Team Providers Care Movie Stunt Performer Name Role Phone Hernan Yuan MD Primary Care Provider [phone] Baldev Knox MD Unavailable [phone] Sunshine Stubbs Primary Care Provider [phone] Encounter Details Date Type Department Care Team (Late st Contact Info) Description 06/23/2017 Abstract [facility] at [address] [phone] Hussein Dickinson MA Social History Tobacco Use Types Packs/Day Years Used Date Smoking Tobacco: Never Smokeless Tobacco: Never Alcohol Use Standard Drinks/Week Comments No 0 (1 standard drink = 0.6 oz pur e alcohol) Comments No Sex and Gender Information Value Date Recorded Sex Assigned at Not on file Legal Sex Female 2:54 PM VP LAB Gender Identity Not on file Sexual Orientation Not on file documented as of this encounter Plan of Treatment Not on file documented as of this encounter Procedures Procedure Name Priority Date/Time Associated Diagnosis Comments BASIC METABOLIC PANEL Routine 03/10/2020 LIPID PANEL Routine 03/10/2020 CBC (OUTSIDE LAB) Routine 10/07/2017 VITAMIN B-12 Routine 10/07/2017 COMPREHENSIVE METABOLIC PANEL Routine 10/07/2017 LIPID PANEL Routine 10/07/2017 THYROXINE, FREE (FT4) Routine 10/07/2017 THYROID STIM HORMONE TSH Routine 10/07/2017 VITAMIN D, 25 OH Routine 10/07/2017 BUN (OUTSIDE LAB) Routine 06/22/2017 HEMATOCRIT Routine 06/22/2017 CREATININE Routine 06/22/2017 documented in this encounter Results * BASIC METABOLIC PANEL (03/10/2020) SODIUM S/P/B 140 POTASSIUM S/P/B 4.3 CO2 30 CHLORIDE S/P/B 103 GLUCOSE 81 mg/dL CALCIUM S/P/B 9.7 BUN 12 CREATININE S/P/B 0.96 0.5 - 1.0 EGFR AFR. AMER. 73 <=90 EGFR NON-AFR. AMER. 63 <=90 03/10/2020 us Doc [facility] LABORATORY Final Result * LIPID PANEL (03/10/2020) CHOLESTEROL 158 HDL 68 TRIGLYCERIDES 120 NON HDL CHOLESTEROL 90 LDL (CALCULATED) 69 03/10/2020 us Doc [facility] Final Result * VITAMIN D, 25 OH (10/07/2017) VITAMIN D 25 HYDROXY S/P/B 26 10/07/2017 us Doc [facility] Final Result * VITAMIN B-12 (10/07/2017) VITAMIN B12 S/P/B 614 10/07/2017 us Doc [facility] Final Result * CBC (OUTSIDE LAB) (10/07/2017) WBC 4.07 HGB 12.3 HCT 38.1 PLT 252 10/07/2017 us Doc [facility] Abstract LAB-OUTSIDE/ABSTRACTED Final Result * THYROXINE, FREE (FT4) (10/07/2017) Pathologist [facility] FREE T4 1.2 10/07/2017 us Doc [facility]AT[facility] Final Result * THYROID STIM HORMONE, TSH (10/07/2017) Pathologist [facility] TSH 0.98 10/07/2017 us Doc [facility]ORAT[facility] Final Result * COMPREHENSIVE METABOLIC PANEL (10/07/2017) Pathologist [facility] SODIUM S/P/B 143 POTASSIUM S/P/B 5.3 CO2 31 CHLORIDE S/P/B 105 GLUCOSE 84 mg/dL CALCIUM S/P/B 9.7 BUN 14 CREATININE S/P/B 0.92 0.5 - 1.0 EGFR AFR. AMER. 78 <=90 EGFR NON-AFR. AMER. 68 <=90 ALKALINE PHOSPHATASE S/P/B 92 ALT 25 AST 30 BILIRUBIN TOTAL S/P/B 0.9 ALBUMIN S/P/B 4.3 3.5 - 5.0 TOTAL PROTEIN S/P/B 6.5 GLOBULIN 2.2 10/07/2017 us Doc [facility] LABORAT[facility] Final Result * LIPID PANEL (10/07/2017) Pathologist [facility] CHOLESTEROL 171 HDL 59 TRIGLYCERIDES 103 NON HDL CHOLESTEROL 112 LDL (CALCULATED) 92 10/07/2017 us Doc [facility] LAB[facility] Final Result * HEMATOCRIT (06/22/2017) HCT 33.3 06/22/2017 us Doc [facility] LABORAT[facility] Edited Resul t - Final * CREATININE (06/22/2017) CREATININE S/P/B 0.85 0.5 - 1.0 EGFR NON-AFR. AMER. 74 <=90 EGFR AFR. AMER. 86 <=90 06/22/2017 us Doc [facility] LABORAT[facility] Edited Resul t - Final * BUN (OUTSIDE LAB) (06/22/2017) BUN 18 06/22/2017 us Doc [facility] Abstract LAB-OUTSIDE/ABSTRACTED Final Result documented in this encounter Visit Diagnoses Not on filedocumented in this encounter Care Teams Movie Stunt Performer Relationship Specialty Start Date End Date Hernan Yuan MD [address] [facility] [address] [place] [id number] PCP - General INTERNAL MEDICINE 06/07/17 09/08/20 [place] [address] [place] [address] PCP - General PHYSICIAN POLE SHAVER HELPER 09/09/20 Baldev Knox MD [facility]. KOR[address] [place] [address] [place] Diesel Inspector CARDIOVASCULAR DISEASE 07/18/17 documented as of this encounter
--- OUTSIDE RECORDS SUMMARY | 2024-09-24 13:02 | XMS_ITS | Clinical Summary ---
Author Organization [facility] C Address [address] [place] [address] Care Team Providers Care Esthetician Name Role Phone Hernan Yuan MD Primary Care Provider [phone] Allergies Active Allergy Reactions Criticality Noted Date [...] 08/31 Assessment & Plan (08/31/2021 9:51 AM PEDIGREE RESEARCHER): Ms. Pickens has pseudoarthrosis of L3-5 with [...] films. Assessment & Plan (08/03/2021 9:30 AM PEDIGREE RESEARCHER): Ms. 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 Powers in 4.5 months with Flexion/Extension Lumbar spine films. Lumbar stenosis without neur ogenic claudication 12/11/2020 04/29/2021 Spondylolisthesis of lumbar region 10/07/2020 04/29/2021 Overview (10/07/2020): Added automatically from request for surgery [id number] Immunizations Immunization Administration Dates Next Due Influenza, Quadrivalent, Mima l Culture-based MDCK, Preservative Free, Antibiotic Free, Intramuscular 04/05/2019 Influenza, Quadrivalent, Rec ombinant, Egg Free, Preservative Free, Intramuscular 05/08/2018 Influenza, Quadrivalent, Spl it, Preservative Free, Intramuscular 04/01/2021,03/15/2020 Influenza, Trivalent, IM (MDV) 06/06/2012 Influenza, Unspecified 04/23/2014,06/06/2013 Surgical History Surgery Date Site/Laterality Comments DE UNLISTED PROCEDURE ABDOMEN PERITONEUM & OMENTUM Hernia Repair - umbilical 1961, 2002 (Added by TW Conv) DE UNLISTED PROCEDURE BREAST Breast Surgery - biopsy 1994 (Added by TW Conv) DE TONSILLECTOMY PRIMARY/SECONDARY <AGE 12 Tonsillectomy - (Added by TW Conv) TONSILLECTOMY 06/27/1961 - 06/26/1962 HERNIA REPAIR 1962, 2001 umbilical BREAST BIOPSY BUNIONECTOMY neuroma 2008 Medical History Medical History Date Comments Hyperlipidemia Osteoporosis Vitamin D deficiency Depression Arthritis Family History Medical History Relation Name Comments Heart disease Father Hypertension Father Heart disease Mother Hypertension Mother Stroke Mother Heart disease Other 1 65, mother (Adde d by TW Conv) Heart Disease - father, at Hypertension Other 2 Hypertension - (Added by TW Conv) Relation Name Status Comments Father Mother Other 1 65, mother (Added by TW Conv) Other 2 Social History Tobacco Use Types Packs/Day Years [...] week 12/25/2021 How often do you attend [facility] or [facility] services? 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 Not on file No t on file Not on file Obstetrics History Last Filed Vital Signs Vital Sign Reading [...] 12/24/2021 6:59 AM CDT Plan of Treatment Health Maintenance Due Date Last Done Comments Breast Cancer Screening-Mammogram 1957 Colon Cancer Screening-Colonoscopy 1957 Hepatitis C Screening 1957 Osteoporosis Screening-Bone Density Scan 1957 DTaP/Tdap/Td Vaccine (1 - Tdap) 1968 Hepatitis B Screening 1975 Pneumococcal vaccine 65+ (1 of 1 - PCV) 2007 Zoster Vaccine (1 of 2) 2007 Depression Screening 10/01/2021 10/01/2020, 10/02/19 21 Well Visit 65+ 2022 Fall Risk Assessment 12/25/2022 12/25/2021 Covid-19 Vaccine (3 - 2023-2 5 season) 2024 06/04/2021, 09/04/2020 Influenza Vaccine (#1) 2024 , 03/15/2020, 04/05/2019, Additional history exists Medical Devices Implanted Type Area Animal Technician Device Identifier Shelf Expiration Date Model / Serial / Lot Isto [employer] [id number] Inqu Paste Mix Plus Software Specialist 10cc Bone Graft Hyaluronic Acid Poly - [id number] Implanted:Qty: 1 on 12/11/2020 by Mega Powers MD at [facility] N/A: Spine Lumbar [employer] [id number] 05/01/2022 [id number] / / [id number] Core Link [id number] Brothers 6.5mm 40mm Spine Pedicle Screw Bone 5500 Series - [id number] Implanted:Qty: 6 on 12/11/2020 by Mega Powers MD at [facility] N/A: Spine Lumbar Core Link [id number] / / Core Link [id number] Brothers Screw Set 5500 Series - [id number] Implanted:Qty: 6 on 12/11/2020 by Mega Powers MD at [facility] N/A: Spine Lumbar Core Link [id number] / / Core Link [id number] Brothers 5.5mm 65mm Line Prebent Vadim Spinal Nonsterile 5500 Series - [id number] Implanted:Qty: 1 on 12/11/2020 by Mega Powers MD at [facility] N/A: Spine Lumbar Core Link [id number] / / Core Link [id number] Brothers 5.5mm 70mm Line Prebent Vadim Spinal Nonsterile 5500 Series - [id number] Implanted:Qty: 1 on 12/11/2020 by Mega Powers MD at [facility] N/A: Spine Lumbar Core Link [id number] / / Core Link Cage F3d Lateral 18mm X 50mm X 12mm 8 Degree [id number] - [id number] Implanted:Qty: 1 on 12/24/2021 by Mega Powers MD at [facility] N/A: Spine Lumbar Core Link [id number] 20 09/09/2024 [id number] / / [id number] Core Link Cage F3d Lateral 18mm X 50mm X 12mm 8 Degree [id number] - [id number] Implanted:Qty: 1 on 12/24/2021 by Mega Powers MD at [facility] N/A: Spine Lumbar Core Link [id number] 20 09/09/2024 [id number] 12 / / [id number] Allograft Bone Putty 2.5cc 700-025 - [id number] Implanted:Qty: 1 on 12/24/2021 by Mega Powers MD at [facility] N/A: Spine Lumbar Cer[employer] Inc 06/26/2024 700-025 / / [id number] Allograft Bone Putty 2.5cc 700-025 - [id number] Implanted:Qty: 1 on 12/24/2021 by Mega Powers MD at [facility] N/A: Spine Lumbar [employer] Inc 06/26/2024 700-025 / / [id number] Allograft Bone Putty 2.5cc 700-025 - [id number] Implanted:Qty: 1 on 12/24/2021 by Mega Powers MD at [facility] N/A: Spine Lumbar [employer] 06/26/2024 700-025 / / [id number] Insurance [facility] CLAIMS CLAIMS Member Subscriber Plan / Payer (Ef fective 2020-Present) Name:Erika Pickens Relation to Subscriber:Self Name:Erika Pickens Payer ID:[id number] (NAIC) Type:Intrapace Address: [place] [phone] [employer] [id number] [facility] CLAIMS [employer] [place] [phone] Advance Directives For more information, please contact: [phone] * Full Code (Latest Code Status on File) Date Activated Date Inactivated Comments 12/24/2021 12:46 PM 12/25/2021 4:13 PM * Full Code Date Activated Date Inactivated Comments 12/11/2020 11:05 AM 12/12/2020 4:52 PM Care Teams Esthetician Relationship Specialty Start Date End Date Kopjas, Hernan C., MD [address] [facility] [address] [place] [address] PCP - General Internal Medicine 09/03/20
--- OUTSIDE RECORDS SUMMARY | 2024-09-24 13:02 | XMS_ITS | Clinical Summary ---
Author Organization [facility] Address [address] [place] [address] Care Team Providers Care Construction Assistant Name Role Phone Unavailable Primary Care Provider Unavailabl e Allergies Active Allergy Reactions Criticality Noted Date Comments Ciprofloxacin Hives High 02/14/2024 Vancomycin Itching Low 01/20/2021 Facial itching, facial redness and scalp itching Medications alendronate (FOSAMAX) 70 mg tablet Take 70 mg by mouth every 7 days. Active aspirin (ECOTRIN EC) 81 mg Tablet, Delayed Release (E.C.) Take 81 mg by mouth daily. Active calcium carb and citrate-vitD3 600 mg-12.5 mcg (500 unit) Tablet Sustained Release Take 1 Tablet by mouth daily. Active escitalopram oxalate (LEXAPRO) 20 mg tablet Take 20 mg by mouth daily. Active rosuvastatin (CRESTOR) 20 mg tablet Take 20 mg by mouth daily at bedtime. Active calcium carb/vitamin D3/vit K1 (CALCIUM-VITAMIN D3-VITAMIN K ORAL) Take by mouth. Active Fish Oil-Melvin-3 Fatty Acids 300-500 mg Capsule Take by mouth. Active Active Problems No known active problems Encounters Date Type Department Care Team Description 09/12/2024 External Device Data STL ABSTRACTION Provider, Abstract 09/01/2024 External Device Data STL ABSTRACTION Provider, Abstract 08/31/2024 External Device Data STL ABSTRACTION Provider, Abstract 08/29/2024 External Device Data STL ABSTRACTION Provider, Abstract 08/15/2024 External Device Data STL ABSTRACTION Provider, Abstract 08/15/2024 External Device Data STL ABSTRACTION Provider, Abstract 07/18/2024 External Device Data STL ABSTRACTION Provider, Abstract 07/18/2024 External Device Data STL ABSTRACTION Provider, Abstract 07/16/2024 Telephone [facility] Oncology and Hematology - René [address] [place] [address] Chas Alexander MD B12 Injections 07/12/2024 4:30 PM FLOOR NURSE Telephone Check Up [facility] Oncology and Hematology - René [address] [place] [address] Chas Alexander MD Iron deficiency anemia, unspecified iron deficiency anemia type (Primary Dx) 07/06/2024 Orders Only [facility] Oncology and Hematology - René [address] [place] [address] Chas Alexander MD from Last 3 Months Family History Medical History Relation Name Comments Atrial fibrillation Brother 1 Heart Disease Brother 1 Atrial fibrillation Brother 2 Heart Disease Brother 2 No Known Problems Child 1 Aaron No Known Problems Child 2 Luke No Known Problems Child 3 Coby Heart Disease Father Atrial fibrillation Mother Heart Disease Mother No Known Problems Sister Relation Name Status Comments Brother 1 Alive Brother 2 Alive Child 1 Aaron Alive Child 2 Luke Alive Child 3 Coby Alive Father Mother Sister Alive Social History Tobacco Use Types Packs/Day Years Used Date Smoking Tobacco: Never Smokeless Tobacco: Never Tobacco Cessation:Counseling Given: Not Answered Alcohol Use Standard Drinks/Week Comments Yes 0 (1 standard drink = 0.6 oz pur e alcohol) 1 time per week Comments Unknown Sex and Gender Information Value Date Recorded Sex Assigned at Not on file Legal Sex Female 9:45 AM CDT Gender Identity Not on file Sexual Orientation Not on file Last Filed Vital Signs Vital Sign Reading Time Taken Comments Blood Pressure 107/72 03/14/2024 9:48 AM CDT Pulse 63 03/14/2024 9:48 AM CDT Temperature 36.6 C (97.8 F) 03/14/2024 9:48 AM CDT Respiratory Rate 16 03/14/2024 9:48 AM CDT Oxygen Saturation 98% 03/14/2024 9:48 AM CDT Inhaled Oxygen Concentration - - Weight 68.9 kg (152 lb) 03/14/2024 9:48 AM CDT Height 167.6 cm (5' 6 ) 02/14/2024 1:12 PM CDT Body Mass Index 24.53 02/14/2024 1:12 PM CDT Plan of Treatment Upcoming Encounters Date Type Department Care Team (Late st Contact Info) Description 11/15/2024 11:45 AM CDT Office Visit [facility] Oncology and Hematology - René [address] [place] [address] Chas Alexander MD [address] [place] [address] Health Maintenance Due Date Last Done Comments Traditional Medicare (ACO) A nnual Wellness Visit 1976 COLORECTAL SCREENING 2002 Colorectal Cancer Screening 2002 FIT-DNA Q 3 years 2002 FIT/FOBT Q 1 year 2002 Flex Sig/CT Colonography Q 5 years 2002 PNEUMOCOCCAL VACCINE 50+ YEA RS (1 of 1 - PCV) 2007 ZOSTER VACCINE (1 of 2) 2007 DTAP/TDAP/TD VACCINES (2 - T d or Tdap) 03/12/2020 03/12/2010 INFLUENZA VACCINE (#1) 2024 , 04/01/2021, 03/15/2020, Additional history exists COVID-19 Vaccine (2 - 2023-2 5 season) 2024 09/04/2020 BREAST CANCER SCREENING 06/18/2025 06/18/20 24, 05/31/2022, 05/31/2022 RSV VACCINE (60+ or ) (1 - 1-dose 75+ series) 2032 OSTEOPOROSIS SCREENING Completed 05/06/2023 Procedures Procedure Name Priority Date/Time Associated Diagnosis Comments CBC WITH DIFFERENTIAL Routine 07/03/2024 1:57 PM FLOOR NURSE MAMMOGRAM REPORT Routine 06/18/2024 2:00 PM FLOOR NURSE from Last 3 Months or Most Recently Relevant to Health Maintenance Results * CBC WITH DIFFERENTIAL (07/03/2024 1:57 PM FLOOR NURSE) Blood Chas Alexander MD HEMATOLOGY ORDERABLES Final Res ult * MAMMOGRAM REPORT (06/18/2024 2:00 PM FLOOR NURSE) Provider Scanning MAMMO ORDERABLES Final Result from Last 3 Months or Most Recently Relevant to Health Maintenance Insurance MEDICARE PART A AND B [facility] [id number]
--- OUTSIDE RECORDS SUMMARY | 2024-09-24 13:02 | XMS_ITS | Clinical Summary ---
Author Organization [facility] [employer] Address [address] [place] [address] Care Team Providers Care Cashier And Waiter/Waitress Name Role Phone Hernan Yuan MD Primary Care Provider [phone] Source Comments [facility] [employer],non-owned Affiliates and Associated Physician Practices is amultiple site organization consisting of ambulatory clinics and hospital sitesin [place], [place], [place] and [place]. This disclosure is being madepursuant to the Care Everywhere program and may not contain all information available regarding this patient. Last updated 18.[facility] [employer] Allergies No known active allergies Medications * Be aware that medications may not be up to date on this document. Alwaysverify current medications with the patient. Medication Sig Dispensed Refills Start Date End Date Status Citalopram Hydrobromide (CITALOPRAM PO) Active metoprolol succinate XL 24hr (TOPROL XL) 25 MG tablet Take 25 mg by mouth once daily Active pravastatin (PRAVACHOL) 40 MG tablet Take 40 mg by mouth at bedtime Active aspirin (ASPIRIN) 81 MG tablet Take 81 mg by mouth once daily Active potassium chloride (KLOR-CON) 20 MEQ packet Take 20 mEq by mouth once daily Active Magnesium Oxide 400 MG Ac tive Immunizations Name Administration Dates Next Due iNFLUENZA VACCINE, RECOM-CASTANO, QUADR. (FLUBLOCK QUADRIVALENT; 18Y+) (RIV4) 05/08/2018 Social History Tobacco Use Types Packs/Day Years Used Date Smoking Tobacco: Never Smokeless Tobacco: Never Sex and Gender Information Value Date Recorded Sex Assigned at Not on file Gender Identity Not on file Sexual Orientation Not on file Last Filed Vital Signs Vital Sign Reading Time Taken Comments Blood Pressure 100/68 05/08/2018 4:49 PM SAIL FINISHER HAND Pulse 56 05/08/2018 4:49 PM SAIL FINISHER HAND Temperature 36.7 C (98 F) 05/08/2018 4:49 PM SAIL FINISHER HAND Respiratory Rate 16 05/08/2018 4:49 PM SAIL FINISHER HAND Oxygen Saturation 99% 05/08/2018 4:49 PM SAIL FINISHER HAND Inhaled Oxygen Concentration - - Weight 68 kg (150 lb) 05/08/2018 4:49 PM SAIL FINISHER HAND Height 168.9 cm (5' 6.5 ) 05/08/2018 4:49 PM SAIL FINISHER HAND Body Mass Index 23.85 05/08/2018 4:49 PM SAIL FINISHER HAND Plan of Treatment Health Maintenance Due Date Last Done Comments BONE DENSITY TESTING 1957 COLOGUARD (AGES 45-75) - COL ON CA SCREENING 1957 COLON MONITORING 1957 COLONOSCOPY - COLON CA SCREENING 1957 CT COLONOGRAPHY - COLON CA SCREENING 1957 Colorectal Cancer Screening 1957 FIT - COLON CA SCREENING 1957 FLEX SIG - COLON CA SCREENING 1957 MAMMOGRAM 1957 MEDICARE AWV 12 MONTHS 1957 COVID-19 VACCINE (#1) 1962 HEPATITIS C SCREENING 04/22/1975 DTAP/TDAP/TD VACCINES (1 - Tdap) 1976 PNEUMOCOCCAL VACCINE 50+ (1 of 2 - PCV) 1976 ZOSTER VACCINE (1 of 2) 1976 Respiratory Syncytial Virus (RSV) Vaccine Pt: or over 60 yrs (1 - Risk 60-74 years 1-dose series) 2017 INFLUENZA VACCINE (#1) 2024 05/08/2018 DEPRESSION SCREENING 06/27/2024 HEPATITIS B VACCINE Aged Out No longe r eligible based on patient's age to complete this topic HIB VACCINE Aged Out No longer eligi ble based on patient's age to complete this topic HPV VACCINE Aged Out No longer eligi ble based on patient's age to complete this topic MENINGOCOCCAL (Group B) VACC INE SHARED DECISION-MAKING Aged Out No longer eligibl e based on patient's age to complete this topic MENINGOCOCCAL GROUPS A/C/Y/W VACCINE Aged Out No longer eligible b ased on patient's age to complete this topic Care Teams Cashier And Waiter/Waitress Relationship Specialty Start Date End Date Hernan Yuan MD [address] [place] [address] PCP - General Internal Medicine 08/22/17
== END 2024-09-24 11:28 | disposition home or self-care (01) ==
PROVIDERS: PCP Internal Medicine Hematology & Oncology; Visit Provider Internal Medicine
DX: M25.461 Effusion, right knee (principal); M17.11 Unilateral primary osteoarthritis, right knee
CPT/HCPCS: 73564

== ENCOUNTER 2024-10-05 07:39 | Outpatient (CLI) | payer MEDICARE, OTHER, SELFPAY ==
--- NOTE | ~2024-10-05 | MR_ITS ---
MRI of the right knee Clinical history: Pain Technique: Coronal proton density and proton density-weighted images, sagittal proton-density and T2 fat-sat images, and axial proton-density fat-saturated images were acquired. Findings: Anterior and posterior cruciate ligaments are intact. Medial collateral ligament and the la teral collateral ligament complex are intact. Popliteus tendon is intact. There is oblique flap tear of the posterior horn of the medial meniscus. No definite lateral meniscal tear seen. There is high-grade chondromalacia extensively involving the lateral patellar facet. There is mild to moderate chondral thinning in the medial lateral compartments, especially towards the joint lines. T here is focal subchondral cystic change of the superior patella. Extensor mechanism is intact. Small joint effusion present with small Franklin's cyst. Impression: Oblique flap tear of the posterior horn of the medial meniscus. High-grade chondromalacia patella, as above. Mild degenerative changes in the medial lateral compartm ent. Small joint effusion with small Franklin's cyst, which may be partially ruptured. Reviewed, dictated and finalized at location M. Impression: Oblique flap tear of the posterior horn of the medial meniscus. High-grade chondromalacia patella, as above. Mild degenerative changes in the m edial lateral compartment. Small joint effusion with small Franklin's cyst, which may be partially ruptured.
== END 2024-10-05 07:40 | disposition home or self-care (01) ==
LOC: MICIMG 07:40
PROVIDERS: PCP Internal Medicine; Visit Provider Internal Medicine
DX: S83.241A Other tear of medial meniscus, current injury, right knee, initial encounter (principal); X58.XXXA Exposure to other specified factors, initial encounter; M25.461 Effusion, right knee; M71.21 Synovial cyst of popliteal space [Baker], right knee; M17.11 Unilateral primary osteoarthritis, right knee
CPT/HCPCS: 73721

== ENCOUNTER 2024-11-02 00:10 | Day surgery (SDC) | payer MEDICARE, OTHER, SELFPAY ==
--- NOTE | 2024-10-26 10:38 | PC.NURSE ---
Report to the Outpatient Waiting Room, entrance under the green pavilion located off [facility], at time _1 PM on date _11/02/24 . Planned Procedure Time: ___3 PM .? Time changes happen often and if your time is changed the preop area will call you the afternoon before. - You and your visitor will be asked to self-screen and do not enter if you have any COVID symptoms. Please call surgeon if you need to reschedule. - A mask is optional within the hospital at this time. Patients may have clear liquids (water, carbonated beverages, clear teas, apple juice) until 3 hours prior to surgery ( 1200 ) with a maximum of 20 ounces. - No food from midnight until time of surgery and no smoking, or chewing tobacco (or any form of nicotine). No chewing gum, candy or mints. - Take only the following medications with a SIP of water on the morning of surgery: NONE DO NOT STOP ANY OF YOUR OTHER PRESCRIPTION MEDICATIONS PRIOR TO SURGERY EXCEPT THE FOLLOWING Hold all vitamins and supplements for 3 days per anesthesiologist.LAST DOSE 10/29/24 Medications to discontinue per physician ALEVE_HOLD 7 DAYS PRE OP PER DR ALAN Date to take last dose____10/25/24 MAY TAKE TYLENOL IF NEEDED FOR PAIN Please no make-up, nail tajik, hairspray, perfume, deodorant, or body powder the day of surgery.? No jewelry (including any body piercings) or valuables the day of surgery, leave them at home.? Please take a shower or bath the night before, or the morning of, surgery with an antibacterial soap.? Wear comfortable, loose fitting clothing.? Children are encouraged to wear pajamas. - Jewelry must be removed prior to entering the operating room.? Rings and piercings that are not removed may be cut off. - The hospital will not accept responsibility for valuables.? - Please leave all valuables, including medications, at home the day of surgery. If you are going home after surgery, a licensed tanker driver must drive you home.? - NO public transportation without another adult if you receive anesthesia. - We recommend that an adult stay with you for 24 hours following discharge. - We also recommend that you do not drive, make important decision, drink alcoholic beverages, or take any drugs that were not prescribed by your health care provider for at least 24 hours after your discharge time. For Pediatric surgeries, we recommend two adults accompany the child home. Follow any additional instructions given to you from your surgeon. Telephone instructions given to _PATIENT and asked if any additional questions and then verbalized understanding. Patient advised to call surgeon office or pre surgery nurse liaison [phone] if any additional questions.
[2024-10-26 11:00] VITALS: BMI 23.9
[2024-11-02] VITALS (7 sets, daily range): BP systolic 112–126; BP diastolic 48–68; PULSE 64–88; RESP 14–18; TEMP 36.7; O2SAT 100; BMI 23.9
--- OUTSIDE RECORDS SUMMARY | 2024-11-02 00:13 | XMS_ITS | Encounter Summary ---
Author Organization [facility] Address [address] [place] [address] Care Team Providers Care Diplomatic Interpreter/Translator Name Role Phone Hernan Yuan MD Primary Care Provider [phone] Baldev Knox MD Unavailable [phone] Sunshine Stubbs Primary Care Provider [phone] Encounter Details Date Type Department Care Team (Late st Contact Info) Description 06/23/2017 Abstract [facility] at [address] [id number] Hussein Dickinson MA Social History Tobacco Use Types Packs/Day Years Used Date Smoking Tobacco: Never Smokeless Tobacco: Never Alcohol Use Standard Drinks/Week Comments No 0 (1 standard drink = 0.6 oz pur e alcohol) Comments No Sex and Gender Information Value Date Recorded Sex Assigned at Not on file Legal Sex Female 2:54 PM STRAW HAT 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 Gender Identity Not on file Sexual Orientation [...] Result * THYROXINE, FREE (FT4) (10/07/2017) Pathologist [facility] FREE T4 1.2 10/07/2017 us Doc [facility] LABORATORY Final Result * THYROID STIM HORMONE, TSH (10/07/2017) Pathologist [facility] TSH 0.98 10/07/2017 us Doc [facility] LABORAT[facility] Final Result * COMPREHENSIVE METABOLIC PANEL (10/07/2017) Pathologist [facility] SODIUM S/P/B 143 POTASSIUM S/P/B 5.3 CO2 [...] Final Result * LIPID PANEL (10/07/2017) Pathologist [facility] CHOLESTEROL 171 HDL 59 TRIGLYCERIDES 103 NON [...] on filedocumented in this encounter Care Teams Diplomatic Interpreter/Translator Relationship Specialty Start Date End Date Hernan Yuan MD [address] [facility] [address] [place] [address] PCP - General INTERNAL MEDICINE 06/07/17 09/08/20 [place] [address] [place] [address] PCP - General PHYSICIAN FILTER HELPER 09/09/20 Baldev nKox MD [facility]. KORIN [address] [place] [address] [employer] Media Specialist CARDIOVASCULAR DISEASE 07/18/17 documented as of this encounter
--- OUTSIDE RECORDS SUMMARY | 2024-11-02 00:13 | XMS_ITS | Clinical Summary ---
Author Organization [facility] Address [address] [facility] [address] Care Team Providers Care Watcher Lookout Tower Name Role Phone Hernan Yuan MD Primary Care Provider [phone] Source Comments [facility],non-owned Affiliates and Associated Physician Practices is amultiple site organization consisting of ambulatory clinics and hospital sitesin [place], [place], [place] and [place]. This disclosure is being madepursuant to the Care Everywhere program and may not contain all information available regarding this patient. Last updated 18.[facility] Allergies No known active allergies Medications * Be aware that medications may not be up to date on this document. Alwaysverify current medications with the patient. Citalopram Hydrobromide (CITALOPRAM PO) Acti ve metoprolol succinate XL 24hr (TOPROL XL) 25 MG tablet Take 25 mg by mouth once daily Active pravastatin (PRAVACHOL) 40 MG tablet Take 40 mg by mouth at bedtime Active aspirin (ASPIRIN) 81 MG tablet Take 81 mg by mouth once daily Active potassium chloride (KLOR-CON) 20 MEQ packet Take 20 mEq by mouth once daily Active Magnesium Oxide 400 MG Active Immunizations Immunization Administration Dates Next Due iNFLUENZA VACCINE, RECOM-CASTANO, QUADR. 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 Gender Identity Not on file Sexual Orientation Not on file Last Filed Vital Signs Vital Sign Reading Time Taken Comments Blood Pressure 100/68 05/08/2018 4:49 PM INSPECTOR FINAL ASSEMBLY MECHANICAL Pulse 56 05/08/2018 4:49 PM INSPECTOR FINAL ASSEMBLY MECHANICAL Temperature 36.7 C (98 F) 05/08/2018 4:49 PM INSPECTOR FINAL ASSEMBLY MECHANICAL Respiratory Rate 16 05/08/2018 4:49 PM INSPECTOR FINAL ASSEMBLY MECHANICAL Oxygen Saturation 99% 05/08/2018 4:49 PM INSPECTOR FINAL ASSEMBLY MECHANICAL Inhaled Oxygen Concentration - - Weight 68 kg (150 lb) 05/08/2018 4:49 PM INSPECTOR FINAL ASSEMBLY MECHANICAL Height 168.9 cm (5' 6.5 ) 05/08/2018 4:49 PM INSPECTOR FINAL ASSEMBLY MECHANICAL Body Mass Index 23.85 05/08/2018 4:49 PM INSPECTOR FINAL ASSEMBLY MECHANICAL Plan of Treatment Health Maintenance Due Date [...] - Risk 60-74 years 1-dose series) 2017 DEPRESSION SCREENING 06/27/2024 INFLUENZA VACCINE (Season Ended) 2025 05/08/20 18 HEPATITIS B VACCINE Aged Out No longe [...] age to complete this topic Insurance MEDICARE SELF PAY NO INSURANCE Member Subscriber Plan / Payer (Ef fective for All Dates) Name:Erika Pickens Member ID:Not on file Relation to Subscriber:Not on file Name:BARBRA PICKENSAN MARGARITA Subscriber ID:Not on file (Home) Address: [address] [place] [id number] Payer ID:Not on file Group ID:Not on file Type:Self Pay Address: [place], [place] Care Teams Watcher Lookout Tower Relationship Specialty Start Date End Date Hernan Yuan MD [address] [place] [address] PCP - General Internal Medicine 08/22/17
--- OUTSIDE RECORDS SUMMARY | 2024-11-02 00:13 | XMS_ITS | Clinical Summary ---
Author Organization [facility] Address [facility] [address] [place] [address] Care Team Providers Care Attendance Officer Name Role Phone Baldev Knox MD Unavailable [phone] Sunshine Stubbs Primary Care Provider [phone] Allergies Active Allergy Reactions Criticality Noted Date Comments Vancomycin Itching Low 01/20/2021 Facial itching, facial redness and scalp itching Medications pravastatin 40 MG tablet Take 40 mg by mouth daily. 1 03/21/2017 Active Arvin-3 Fatty Acids (OMEGA-3 PLUS) 1000 MG Cap [...] Active vitamin D3, cholecalciferol , 1.25 MG (87238 UT) capsule TK 1 C PO ONCE [...] 06/07/2017 Assessment & Plan (06/08/2017 12:14 PM TABLE ASSEMBLER): Chest Pain R/O: Acute; stable VS WNL; [...] 06/07/2017 Assessment & Plan (06/08/2017 7:51 AM TABLE ASSEMBLER): Chronic; stable Hx of depression, on Citalopram 30 mg daily for 2 weeks; previously on 40mg. No SI/HI. -Continue 30 mg daily -F/u w/ PCM Abnormal EKG 06/07/2017 Immunizations Immunization Administration Dates Next Due Flublok (Quadrivalent) 05/08/2018 Flucelvax 6 Months+ (Prefill ed Syringe) 04/05/2019 Fluzone 6 Months+ Quad (0.5 mL Prefilled Syringe) 04/02/2022,03/15/2020 Influenza (Generic) 05/08/2018, 4,06/06/2013,2011 Influenza Adult (Generic) 04/01/2021,03/15/2020, 04/05/2019 DARIANA (WireImage [employer] WireImage) COVID-19 AD26 VACCINE 0.5 ML IM SUSP [...] on file Legal Sex Female 2:54 PM TABLE ASSEMBLER Gender Identity Not on file Sexual Orientation [...] C 1975 DTaP, Tdap and Td Vaccines ( 1 - Tdap) 1976 Mammogram Screening 1997 Pneumococcal Vaccine: 50+ Ye ars (1 of 1 - PCV) 2007 Zoster Vaccines (1 of 2) 2007 Annual Medicare Wellness Visit 2022 Dexa Scan (General) 2022 COVID-19 Vaccine (2 - 2023-2 5 season) 2024 09/04/2020 Colorectal Cancer Screening Colonoscopy (10 Years) 10/10/2029 Postponed from (Awaiting Documentation) RSV Immunization or 60+ Years [...] age to complete this topic Insurance MEDICARE [facility] Address: [address] [place] [address] Advance Directives * Full Code (Latest Code Status on File) Date Activated Date Inactivated Comments 06/17/2017 2:17 PM 06/17/2017 8:11 PM * Full Code Date Activated Date Inactivated Comments 06/07/2017 9:27 PM 06/08/2017 6:51 PM Care Teams Attendance Officer Relationship Specialty [place] [address] [place] [address] PCP - General PHYSICIAN PERSONNEL GENERALIST MANAGER 09/09/20 Baldev Knox MD Three [facility]. [address] [address] [place] Structural Metal Worker CARDIOVASCULAR DISEASE 07/18/17
--- OUTSIDE RECORDS SUMMARY | 2024-11-02 00:13 | XMS_ITS | Clinical Summary ---
Author Organization [facility] Cole Wilkins Address [address] [place] [address] Care Team Providers Care Firmware Engineer Name Role Phone Unavailable Primary Care Provider [...] K ORAL) Take by mouth. Active Fish Oil-[place]-3 Fatty Acids 300-500 mg Capsule Take by [...] External Device Data STL ABSTRACTION Provider, Abstract from Last 3 Months Family History Medical [...] Description 11/15/2024 11:45 AM CDT Office Visit [facility] Oncology and Hematology - René [address] [place] [address] Chas Alexander MD [address] [facility] [address] [place] [address] Health Maintenance Due Date Last Done Comments COLORECTAL SCREENING 2002 Colorectal Cancer Screening 2002 FIT-DNA Q 3 years 2002 FIT/FOBT Q 1 year 2002 Flex Sig/CT Colonography Q 5 years 2002 PNEUMOCOCCAL VACCINE 50+ YEA RS (1 of 1 - PCV) 2007 ZOSTER VACCINE (1 of 2) 2007 DTAP/TDAP/TD VACCINES (2 - T d or Tdap) 03/12/2020 03/12/2010 INFLUENZA VACCINE (#1) 2024 2, 04/01/2021, 03/15/2020, Additional history exists COVID-19 Vaccine (2 - 2023-2 5 season) 2024 09/04/2020 BREAST CANCER SCREENING 06/18/2025 06/18/20 24, 05/31/2022, 05/31/2022 OSTEOPOROSIS SCREENING 05/06/2028 05/06/2023 RSV VACCINE (60+ or ) (1 - 1-dose 75+ series) 2032 Procedures Procedure Name Priority Date/Time Associated Diagnosis Comments MAMMOGRAM REPORT Routine 06/18/2024 2:00 PM CLOUD ENGINEER from Last 3 Months or Most Recently Relevant to Health Maintenance Results * MAMMOGRAM REPORT (06/18/2024 2:00 PM CLOUD ENGINEER) us Provider Scanning MAMMO ORDERABLES Final Result from Last 3 Months or Most Recently Relevant to Health Maintenance Insurance MEDICARE PART A AND [place]
--- OUTSIDE RECORDS SUMMARY | 2024-11-02 00:14 | XMS_ITS | Continuity of Care Document ---
Author Name [facility] Organization [facility] Care Team Providers Care Loan Review Analyst Name Role Phone [facility] Unavailable Unavailable Problems Combined list of problems from Department of Defense and Veterans Affairs facilities. It does not include entries that were removed or entered in error. Problem Status Onset Date Problem Type Date of Resolution Comments Source Cervical Pap Smear Active Condition m ay call [phone] and leave message with results DoD limb pain Inactive Condition R foot pain Do[facility] HEMORRHOIDS Active Condition Francisco supositoriesRowdy also has family h/o colon cancer and wants to be screened. Colonoscopy ordered. [facility] FATIGUE Active Condition TSH, CBC, B12/Folate ordered. Continue Celexa DoD visit for: screening exam malignant neoplasm breast Inactive Condition DoD HEMORRHOIDS EXTERNAL Active Condition increase fiber 25-30gm qddecrease time spent on tolietgood hygiene of periniumf/u w/ pcp 1mos if symptoms persist DoD Pelvic Exam (Internal) Active Condition DoD PATELLOFEMORAL SYNDROME Active Condition Recommend decreased running, and stretching pre/post exercise. [facility] OSTEOARTHRITIS LOCALIZED HIP Active Condition Likely early generalized OA given her family history. [facility] RESTLESS LEGS SYNDROME Active Condition Recommend d/w P CM consider C-scope for mild YOHANA. Pt declined taking Mirapex for now. [facility] OSTEOARTHRITIS LOCALIZED HAND Active Condition mild symptoms controlled on Mobic. [facility] Medications Combined list of outpatient medications from Department of Defense and Veterans Affairs facilities.Medications provided include 1) outpatient medications from the last 15 months, and 2) patient-reported medications. Medication Details Route Status Patient Instructions Prescription Expires Prescription Number Last Dispense Date Ordering Provider Order Date Order Qty Source ALENDRONATE SODIUM (alendronat e sodium), 70 MG, TABLET, ORAL, RISING PHARM, 4 ea. BLIST PACK Active [id number] 4 2023 12 Pharmac y Data Transac tion Service Facilit y Allergies, Adverse Reactions, Alerts Combined list of allergies from Department of Defense and Veterans Affairs facilities. It does not include entries that were removed or entered in error. Substance Category Reaction Severity Reaction type Status Date Reported Comments Source OTHER Drug allergy (disorder) Unknown active 04/30/2005 [facility] Martha NOGUERA ([facility] [place] [place] OTHER Drug allergy (disorder) active 04/02/2019 [place] [address] Immunizations Combined list of available immunizations from the Department of Defense and Veterans Affairs facilities. 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 (MOD) Not Given COVID-19, mRNA, LNP-S, PF, 100 mcg or 50 mcg dose DoD influenza, injectable, quadrivalent, preservative free 2020 LIBBRA, () Not Given influenza , injectabl e, quadrival ent, preservat bret free DoD influenza, injectable, quadrivalent, preservative free 2019 ALUL, () Not Given influenza , injectabl e, quadrival ent, preservat bret free DoD Influenza, injectable, Madin Mallorie Canine Kidney, preservative free, quadrivalent 1 2016 Unknown, Provider [id number] Seqirus (SEQ) complet ed Influenza , injectabl e, Madin Mallorie Canine Kidney, preservat bret free, quadrival ent DoD Influenza, injectable, quadrivalent, preservative free 1 2015 Unknown, Provider [id number] SmithKline (SKB) complet ed Influenza , injectabl e, quadrival ent, preservat bret free DoD Influenza, seasonal, injectable, preservative free 1 2014 Unknown, Provider [id number] CSL Biotherapies, Inc. (CSL) complet ed Influenza , seasonal, injectabl e, preservat bret free DoD Influenza, seasonal, injectable, preservative free 2013 ALUL, RUSHDI DO () Not Given Influenza , seasonal, injectabl e, preservat bret free DoD Influenza, seasonal, injectable 11 2010 Unknown, Provider [id number] 141 Sanofi Pasteur (PMC) complet ed Influenza , seasonal, injectabl e DoD influenza virus vaccine, split virus (incl. purified surface antigen)-reti red CODE 1 2009 Unknown, Provider [id number] 15 Sanofi Pasteur (PMC) complet ed influenza virus vaccine, split virus (incl. purified surface antigen)- retired CODE DoD typhoid Vi capsular polysaccharid e vaccine 1 2009 Unknown, Provider [id number] Sanofi Pasteur ([facility]) complet ed typhoid Vi capsular polysacch aride vaccine DoD tetanus toxoid, reduced diphtheria toxoid, and acellular pertu is vaccine, adsorbed 1 2009 Unknown, Provider [id number] Sanofi Pasteur ([facility]) complet ed tetanus toxoid, reduced diphtheri a toxoid, and acellular pertussis vaccine, adsorbed DoD Novel influenza-H1N 1-09, injectable 1 2009 Unknown, Provider [id number] 127 Novartis RadPad Jay. (NOV) complet ed Novel influenza -L9Q3-19, injectabl e DoD influenza virus vaccine, split virus (incl. purified surface antigen)-reti red CODE 1 2008 Unknown, Provider [id number] 15 Sanofi Pasteur ([facility]) complet ed influenza virus vaccine, split virus (incl. purified surface antigen)- retired CODE DoD influenza virus vaccine, split virus (incl. purified surface antigen)-reti red CODE 1 2007 Unknown, Provider [id number] 15 Sanofi Pasteur (PMC) complet ed influenza virus vaccine, split virus (incl. purified surface antigen)- retired CODE DoD hepatitis B vaccine, adult dosage 2 2007 Unknown, Provider [id number] SmithCritiSenseine (SKB) complet ed hepatitis B vaccine, adult dosage DoD yellow fever vaccine 1 2007 Unknown, Provider [id number] Sanofi Pasteur (PMC) complet ed yellow fever vaccine DoD meningococcal polysaccharid e (groups A, C, Y and W-135) diphtheria toxoid conjugate vaccine (MCV4P) 1 2007 Unknown, Provider [id number] 114 Sanofi Pasteur (PMC) complet ed meningoco ccal polysacch aride (groups A, C, Y and W-135) diphtheri a toxoid conjugate vaccine (MCV4P) DoD hepatitis B vaccine, adult dosage 1 2007 Unknown, Provider [id number] 43 Smithine (SKB) complet ed hepatitis B vaccine, adult dosage DoD typhoid Vi capsular polysaccharid e vaccine 1 2007 Unknown, Provider [id number] Sanofi Pasteur (PMC) complet ed typhoid Vi capsular polysacch aride vaccine DoD influenza virus vaccine, split virus (incl. purified surface antigen)-reti red CODE 1 2006 Unknown, Provider [id number] 15 [facility] (SKB) complet ed influenza virus vaccine, split virus (incl. purified surface antigen)- retired CODE DoD influenza virus vaccine, split virus (incl. purified surface antigen)-reti red CODE 1 2004 Unknown, Provider [id number] 15 Sanofi Pasteur ([facility]) complet ed influenza virus vaccine, split virus (incl. purified surface antigen)- retired CODE DoD tuberculin skin test; purified protein derivative solution, intradermal 1 2004 Unknown, Provider [id number] Parkedayasmeen (PD) complet ed tuberculi n skin test; purified protein derivativ e solution, intraderm al DoD influenza virus vaccine, split virus (incl. purified surface antigen)-reti red CODE 1 2004 Unknown, Provider [id number] 15 Sanofi Pasteur ([facility]) complet ed influenza virus vaccine, split virus (incl. purified surface antigen)- retired CODE DoD influenza virus vaccine, whole virus 1 2002 Unknown, Provider [id number] 16 Sanofi Pasteur ([facility]) complet ed influenza virus vaccine, whole virus DoD influenza virus vaccine, whole virus 1 2001 Unknown, Provider [id number] 16 BettyRidge ([facility]) complet ed influenza virus vaccine, whole virus DoD influenza virus vaccine, whole virus 1 2000 Unknown, Provider [id number] 16 Sanofi Pasteur ([facility]) complet ed influenza virus vaccine, whole virus DoD tetanus and diphtheria toxoids, adsorbed, preservative free, for adult use (2 Lf of tetanus toxoid and 2 Lf of diphtheria toxoid) 1 1998 Unknown, Provider [id number] Rene (CON) complet ed tetanus and diphtheri a toxoids, adsorbed, preservat bret free, for adult use (2 Lf of tetanus toxoid and 2 Lf of diphtheri a toxoid) DoD influenza virus vaccine, whole virus 1 1998 Unknown, Provider [id number] 16 Rene (CON) complet ed influenza virus vaccine, whole virus DoD hepatitis A vaccine, adult dosage 2 1998 Unknown, Provider [id number] Merck (MSD) complet ed hepatitis A vaccine, adult dosage DoD hepatitis A vaccine, adult dosage 1 1996 Unknown, Provider 52 () complet ed hepatitis A vaccine, adult dosage DoD tetanus and diphtheria toxoids, adsorbed, preservative free, for adult use (2 Lf of tetanus toxoid and 2 Lf of diphtheria toxoid) 1 1987 Unknown, Provider 09 () complet ed tetanus and diphtheri a toxoids, adsorbed, preservat bret free, for adult use (2 Lf of tetanus toxoid and 2 Lf of diphtheri a toxoid) DoD trivalent poliovirus vaccine, live, oral 1 1976 Unknown, Provider 02 () complet ed trivalent polioviru s vaccine, live, oral DoD measles, mumps and rubella virus vaccine 1 1976 Unknown, Provider 03 () complet ed measles, mumps and rubella virus vaccine DoD Encounters Combined list of: 1) Encounters from Department of Veterans Affairs facilities going backup to the last 18 months, not all VA inpatient encounters are included; 2) Encounters from the Department of Defense facilities going backup to 280 months. Location Location Details Encounter Type Encounter Number Reason For Visit Attending Provider ADM Date DC Date Status Disposition Source [employer]([facility] Rheumatol ogy) OUTPATIENT [id number] BERT BURTON 02/23 Released w/o Limitations [employer]([facility] Rheumat ology) [employer]([facility] Gynecolog y) OUTPATIENT [id number] WILMAN GODINEZ 02/23 Released w/o Limitations [employer]([facility] Gynecol ogy) [employer]([facility] Flight Medicine PCM Clin) OUTPATIENT [id number] f/u test results FLAVIO RODRIGUEZ 03/11 Released w/o Limitations [employer]([facility] Flight Medicin e PC[facility] Clin) [employer]([facility] PC[facility] Clin) TELE CONSULT [id number] podiatr y referra GENARO Bowser 04/30 [employer]([facility] Flight Medicin e PC[facility] Clin) [employer]([facility] Gynecolog y) OUTPATIENT [id number] annual pap (vrf) MARTHA ROSENTHAL 05/16 /2006 Released w/o Limitations [employer]([facility] Gynecol ogy) Procedures Combined list of: 1) Procedures from Department of Veterans Affairs facilities going back up to thelast 18 months, not all VA non-surgical procedures are included; 2) All procedures from the Department of Defense facilities. Procedure Procedure Type Code Date Perfomer Comments [facility] e COLLECTION OF VENOUS BLOOD B Y VENIPUNCTURE 03/21/2006 [facility] ANOSCOPY; DIAGNOSTIC, INCLUDING COLLECTION OF SPECIMEN(S) BY BRUSHING OR WASHING, WHEN PERFORMED (SEPARATE PROCEDURE) 07/27/2005 DoD INJECTION, MIDAZOLAM HCL, PE R 1 MG 04/13/2005 [facility] WEDGING OF CLUBFOOT CAST 09/24/2004 [facility] WEDGING OF CLUBFOOT CAST 09/03/2004 DoD SCREENING TEST OF VISUAL ACUITY, QUANTITATIVE, BILATERAL 07/23/2004 [facility] PHYSICAL THERAPY RE-EVALUATION 09/19/2003 DoD THERAPEUTIC PROCEDURE, 1 OR MORE AREAS, EACH 15 MINUTES; THERAPEUTIC EXERCISES TO DEVELOP STRENGTH AND ENDURANCE, RANGE OF MOTION AND FLEXIBILITY 08/30/2003 [facility] ELECTROCARDIOGRAM, ROUTINE ECG WITH AT LEAST 12 LEADS; WITH INTERPRETATION AND REPORT 08/29/2003 [facility] CERVICAL OR VAGINAL CANCER SCREENING; PELVIC AND CLINICAL BREAST EXAMINATION 08/28/2003 DoD Social History Combined list of available smoking, tobacco, and other social history from Department of Defense and Veterans Affairs facilities. Social History Type Response Date Comment [facility] e This section is an empty social history section. DoD
--- NOTE | 2024-11-02 11:44 | WPDHPUPDATE1 ---
History and Physical Update Update Date/Time: 11/02/24 11:44 History and Physical has been reviewed, including an updated exam of the patient. There are NO changes in the patient's condition. Risks, benefits, and alternatives have been discussed and questions answered. Patient agrees to proceed with procedure.
[2024-11-02] MEDS: KETOROLAC 15 MG/ML VIAL (*BKC) IV PUSH (13:00)
[2024-11-02] MEDS: ACETAMINOPHEN 500 MG TABLET 1000 MG PO (13:00)
[2024-11-02] MEDS: LACTATED RINGERS 1,000 ML 30 ML IV CONT (14:46)
--- NOTE | 2024-11-02 14:50 | WPDANESEPPF ---
Anes - Initial Pre Proc Eval Procedure: Operation Date: 11/02/24 15:00 Proposed Procedures p Right Knee Arthroscopic Partial Medial Meniscectomy - Michael Munoz MD Date/Time: 11/02/24 14:50 Surgeon: Michael Munoz MD Pre Op Diagnosis: right knee medial meniscus tear Patient Data Age: 69 Gender: F Height: 1.71 m Weight: 70.4 kg Last Vital Signs Temp 36.7 C 11/02/24 14:37 Pulse 64 11/02/24 14:37 Resp 16 11/02/24 14:37 BP 115/67 11/02/24 14:37 Pulse Ox 100 11/02/24 14:37 O2 Del Method Room Air 11/02/24 14:37 Allergies Allergy/AdvReac Type Severity Reaction Status Date / Time amoxicillin Allergy Intermediate Hives Verified 11/02/24 14:37 vancomycin Allergy Intermediate Itching Verified 11/02/24 14:37 Home Medications ?Medication ?Instructions ?Recorded ?Confirmed ?Type calcium 315 mg (as 1 tablet PO DAILY 03/13/20 10/26/24 History citrate)-vitamin D3 6.25 mcg (250 unit) tablet (Citracal + Vitamin D Maximum) krill oil 500 mg capsule 900 mg PO DAILY 03/13/20 10/26/24 History cholecalciferol (vitamin D3) 125 250 mcg PO DAILY 02/14/23 10/26/24 History mcg (5,000 unit) capsule mecobalamin (vitamin B12) 1,000 3,000 mcg sublingual DAILY 03/20/24 10/26/24 History mcg disintegrating tablet,sublingual cyanocobalamin (vitamin B-12) 100 mcg subcut MONTHLY 05/31/24 10/26/24 History 1,000 mcg/mL injection kit escitalopram oxalate 20 mg tablet See Rx Instructions .Route 06/21/24 10/26/24 Rx .COMPLEX #90 tabs rosuvastatin 20 mg tablet See Rx Instructions .Route 06/21/24 10/26/24 Rx .COMPLEX #90 tabs alendronate 70 mg tablet See Rx Instructions .Route 09/17/24 10/26/24 Rx .COMPLEX #12 tabs nitrofurantoin macrocrystal 100 mg 100 mg PO DAILY 10/23/24 10/26/24 History capsule cyanocobalamin (vitamin B-12) 1,000 mcg PO EVERY OTHER DAY 10/26/24 10/26/24 History 1,000 mcg capsule naproxen sodium 220 mg tablet 440 mg PO BID PRN pain 10/26/24 10/26/24 History (Aleve) hydrocodone 5 mg-acetaminophen 325 1 - 2 tablet PO Q4-6H PRN pain 7 11/02/24 Rx mg tablet days #30 tabs Patient hx anesthesia problems: none Family hx anesthesia problems: none Results Review: All pre-operative results and documents have been reviewed as part of the pre-operative evaluation. [facility] Past Medical History Medical History DJD (degenerative joint disease) of knee UTI (urinary tract infection) Encounter for screening for malignant neoplasm of colon Encounter for routine adult health examination with abnormal findings Left shoulder tendonitis High frequency hearing loss Encounter for Medicare annual wellness exam Diverticulosis Right foot pain Anxiety Skin cancer BPPV (benign paroxysmal positional vertigo) Left knee pain Left hip pain Left groin pain Depression Chest wall pain Change in bowel habits Anxiety Abdominal pain in female Breast cancer screening URI (upper respiratory infection) Anemia Renal cyst Skin change Encounter for routine adult health examination without abnormal findings BMI 25.0-25.9,adult Follow up Vitamin D deficiency Osteoporosis Chronic low back pain Hematuria Hearing loss Abnormal finding of blood chemistry, unspecified BMI 24.0-24.9, adult Hyperlipidemia Encounter for preventive health examination 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 Anxiety with depression Surgical History Surgical History History of back surgery Family History Family History Mother Family history of coronary artery disease Grandparent Diabetes mellitus Social History Social History Smoking status: Never smoker Alcohol intake: never Lack of Transportation: No Lack of Food: Never True Current Housing: I Have Housing Concerned About Future Housing: No Difficulty Paying Gas/Electric Bills: No Difficulty Paying for Meds: No Currently Unemployed: No Education: Master's Degree or Higher Difficulty w/ Childcare or Family Care: No Living arrangements: with family Gender identity (if verbalized by the patient): Female Spiritual care concerns: No Anes - Eval Final PreProcedure Day of Procedure 11/02/24 14:50 Patient weight: normal Heart: regular rate and rhythm Lungs: clear to auscultation Airway: Mallampati scale class II Neurological: alert and oriented Last oral intake: >/= 8 hours ASA classification: II Emergent: no Anesthetic plan: proceed Anesthesia type and monitoring: general GIVS and standard monitoring Results Review: All pre-operative results and documents have been reviewed as part of the pre-operative evaluation. Informed Consent: The patient's anesthetic plan and its attendant risks and benefits were discussed with the patient/family/POA. Questions were solicited and answers provided to the satisfaction of the patient/family/POA.
[2024-11-02] MEDS: ceFAZolin 2 GM/D5W 50 ML 2 GM/50 ML BAG IVPB (14:51)
[2024-11-02] MEDS: BUPIVACAINE/EPINEPHRINE 0.5% 50 ML VIAL 20 ML INFILTRATE (15:13)
--- NOTE | 2024-11-02 15:54 | W.PM.PROC2 ---
Procedure Note - Detailed Date of Procedure 11/02/24 Pre-op Diagnosis Right knee medial meniscus tear Post-op Diagnosis Other (Right knee medial and lateral meniscus tears) Procedure Performed Arthroscopic partial medial and lateral meniscectomies, right knee. Surgeon Michael Munoz MD Anesthesia General Findings Extensive medial tear with a flap that was displaced underneath the meniscus. Mild but significant free edge fraying along the medial and anterior aspect of the lateral meniscus. The articular cartilage was healthy except for a small area of grade 3 chondromalacia on the lateral aspect of the medial femoral condyle. Otherwise the cartilage was quite healthy. ACL intact. Description of Procedure The patient was identified and the surgical site confirmed and signed in the preoperative holding area. Antibiotics were started per protocol, and the patient was brought to the operative room and transferred to the OR table. A general anesthetic was administered. Supine position with the operative lower extremity position in the leg linares after placement of a well padded tourniquet. The leg support was lowered and the contralateral limb was supported with a soft bolster. The knee was prepped and draped in the usual sterile fashion. A time-out was performed. The portal sites were marked and infiltrated with 0.5% Marcaine 20 mL. The limb was exsanguinated and the tourniquet inflated to 300 mL Hg. Standard inferolateral and inferomedial portals were established. Inflow was obtained with the saline pump. The camera was introduced. Diagnostic inspection of the joint was accomplished. The menisci were debrided with the arthroscopic shaver and punches until stable. The arthroscopic instruments were removed. The tourniquet released and wounds closed with subcutaneous 4-0 Monocryl absorbable suture. Steri strips and a sterile dressing were applied. A light elastic wrap was placed. The patient was extubated and brought to the recovery room in stable condition. Estimated Blood Loss 5 Drains No Complications No immediate complications Condition Stable Disposition PACU [facility] Billing Surgery - Charge Forward: Surgery Billing
== END 2024-11-02 17:15 | disposition home or self-care (01) ==
PROVIDERS: PCP Internal Medicine; Visit Provider Orthopaedic Surgery
PROC: (CPT 29870; principal; 2024-11-02 15:00)
DX: S83.241A Other tear of medial meniscus, current injury, right knee, initial encounter (principal); M94.261 Chondromalacia, right knee; E78.5 Hyperlipidemia, unspecified; D64.9 Anemia, unspecified; E55.9 Vitamin D deficiency, unspecified; M81.0 Age-related osteoporosis without current pathological fracture; G89.29 Other chronic pain; M17.10 Unilateral primary osteoarthritis, unspecified knee; M54.50 Low back pain, unspecified; R31.9 Hematuria, unspecified; F41.8 Other specified anxiety disorders; X58.XXXA Exposure to other specified factors, initial encounter; Z79.83 Long term (current) use of bisphosphonates; Z79.1 Long term (current) use of non-steroidal anti-inflammatories (NSAID); Z79.891 Long term (current) use of opiate analgesic; Z79.899 Other long term (current) drug therapy; Z98.890 Other specified postprocedural states; Z98.1 Arthrodesis status; Z85.828 Personal history of other malignant neoplasm of skin; Z87.19 Personal history of other diseases of the digestive system; Z82.49 Family history of ischemic heart disease and other diseases of the circulatory system
CPT/HCPCS: 29881; A9270; J0690; J1100; J1885; J2003; J2250; J2405; J2704; J3010; J7120

== ENCOUNTER 2025-06-06 08:11 | Outpatient (CLI) | payer MEDICARE, OTHER, SELFPAY ==
--- NOTE | ~2025-06-06 | XR_ITS ---
EXAMINATION: XR lumbar spine min 4V, XR abdomen/kub 1V DATE: 06/06/2025 08:29 INDICATION: Low back pain and 5 days of right-sided flank pain. TECHNIQUE: Anteroposterior and lateral in neutral, flexion and extension views of the lumbar spine, and cone-down lateral view of the lumbosacral junction were obtained. COMPARISON: Lumbar spine MR dated 10/12/[address] abdomen and pelvis dated 06/01/2018 FINDINGS: Lumbar spine: L4 laminectomy and partial L3 laminectomy. Combined instrumented anterior and posterior spinal fusion at L3-L5 with bilateral vertical josephine and pedicle screw fixations and interbody fusion devices at both levels. There is 4 mm anterolisthesis L4 on L5 with no motion of the fused segments on flexion or e xtension. There is 3-4 mm retrolisthesis L2 on L3 in flexion which increases to 5 mm with extension. Vertebral body heights are normal. There is mild disc height loss at T12-L1 and mild disc height loss at L2-L3. KUB: Chronic small phlebolith in the right hemipelvis. There is a 3-4 mm round calcific lesion projecting lateral to the tip of the left transverse process of L5 which is new since 05/14/2021 and could represent a mid left ureteral stone. There are some adjacent more linear and irregular shaped calcifications left lower lumbar paraspinal calcifications which appear more likely atherosclerotic in etiology. No evident right-sided urolithiasis. Moderate amount of colonic stool. No dilated loops of gas-filled bowel to suggest obstruction. Lung bases are clear. Heart size is normal. IMPRESSION: 1. Mild lumbar spondylosis with instrumented L3-L5 anterior and posterior spinal fusion. 2. 3-4 mm retrolisthesis L2 on L3 in flexion which increases to 5 mm with extension. 3. 3 to 4 mm calcific lesion projecting over the region of the mid left ureter which could represent a ureteral stone or atherosclerotic calcifications. No evident right-sided urolithiasis. Reviewed, dictated and finalized at location A. NCED MANUFACTURING ASSOCIATE IMPRESSION: 1. Mild lumbar spondylosis with instrumented L3-L5 anterior and posterior spina l fusion. 2. 3-4 mm retrolisthesis L2 on L3 in flexion which increases to 5 mm with exten dione. 3. 3 to 4 mm calcific lesion projecting over the region of the mid left ureter which could represent a ureteral stone or atherosclerotic calcifications. No ev ident right-sided urolithiasis.
--- NOTE | ~2025-06-06 | XR_ITS ---
EXAMINATION: XR thoracic spine 3V DATE: 06/06/2025 08:29 INDICATION: Dorsalgia TECHNIQUE: One AP, lateral and lateral swimmer's views of the thoracic spine were obtained. COMPARISON: 01/12/2023 FINDINGS: 14 degrees thoracic dextroscoliosis and mild kyphosis. Vertebral body heights are normal. Multilevel moderate to severe disc height loss in the lower cervical and mid thoracic spine with mild to moderate disc height loss in the upper and lower thoracic spine. Visualized portions of the lungs are clear with no evident pleural effusion or pneumothorax. IMPRESSION: 1. 14 degrees thoracic dextroscoliosis with mild kyphosis and moderate to severe spondylosis. Reviewed, dictated and finalized at location A. UTER SYSTEMS CONSULTANT IMPRESSION: 1. 14 degrees thoracic dextroscoliosis with mild kyphosis and moderate to sever e spondylosis.
[2025-06-06 09:31] LABS: Add Urine Microscopic? NO; Appearance Urine Clear (Clear); Glucose Urine UA Negative (Negative); Leukocyte Esterase Ur Negative LEU/UL (Negative); Nitrate Urine Negative (Negative); Specific Grav Ur 1.011 (1.001-1.035)
== END 2025-06-06 08:12 | disposition home or self-care (01) ==
LOC: ANHIMG 08:12
PROVIDERS: PCP Internal Medicine; Visit Provider Internal Medicine
DX: M41.84 Other forms of scoliosis, thoracic region (principal); R35.0 Frequency of micturition; M43.16 Spondylolisthesis, lumbar region; N28.89 Other specified disorders of kidney and ureter; Z98.1 Arthrodesis status
CPT/HCPCS: 72072; 72110; 74018; 81003

== ENCOUNTER 2025-06-21 10:06 | Outpatient (CLI) | payer MEDICARE, OTHER, SELFPAY ==
--- NOTE | ~2025-06-21 | MM_ITS ---
EXAMINATION: MM screening soniya BI w victoria HISTORY: Screening TECHNIQUE: Craniocaudal and mediolateral oblique 3-D tomosynthesis images were obtained and synthetic 2-D images were generated. CAD analysis was submitted and interpreted. COMPARISON: Comparison to multiple prior studies sequentially, with oldest reviewed study dated 01/21/2017. BREAST PARENCHYMAL COMPOSITION: Dense: The breasts are heterogeneously dense, which may obscure small masses FINDINGS: There is no evidence of suspicious mass, calcification, or architectural distortion to suggest malignancy in either breast. There has been no suspicious interval change. IMPRESSION: 1. No mammographic evidence of malignancy. 2. Recommend routine screening mammography in one year. BI-RADS Category 1: Negative Reviewed, dictated and finalized at location O. TION SERVICES MANAGER
--- OUTSIDE RECORDS SUMMARY | 2025-06-21 10:10 | XMS_ITS | Clinical Summary ---
Author Organization [facility] [employer] Address [address] [place] [address] Care Team Providers Care Keypunch Operator Name Role Phone Hernan Yuan MD Primary Care Provider [phone] Source Comments [facility] [employer],non-owned Affiliates and Associated Physician Practices is amultiple site organization consisting of ambulatory clinics and hospital sitesin [place], [place], [place] and [place]. This disclosure is being madepursuant to the Care Everywhere program and may not contain all information available regarding this patient. Last updated 18.[facility] [employer] Allergies No known active allergies Medications * [...] on file Legal Sex Female 7:11 AM HEALTH POLICY NURSE Gender Identity Not on file Sexual Orientation Not on file Last Filed Vital Signs Vital Sign Reading Time Taken Comments Blood Pressure 100/68 05/08/2018 4:49 PM HEALTH POLICY NURSE Pulse 56 05/08/2018 4:49 PM HEALTH POLICY NURSE Temperature 36.7 C (98 F) 05/08/2018 4:49 PM HEALTH POLICY NURSE Respiratory Rate 16 05/08/2018 4:49 PM HEALTH POLICY NURSE Oxygen Saturation 99% 05/08/2018 4:49 PM HEALTH POLICY NURSE Inhaled Oxygen Concentration - - Weight 68 kg (150 lb) 05/08/2018 4:49 PM HEALTH POLICY NURSE Height 168.9 cm (5' 6.5) 05/08/2018 4:49 PM HEALTH POLICY NURSE Body Mass Index 23.85 05/08/2018 4:49 PM HEALTH POLICY NURSE Plan of Treatment Health Maintenance Due Date Last Done Comments BONE DENSITY TESTING 1955 COLOGUARD (AGES 45-75) - COL ON CA SCREENING 1957 COLON MONITORING 1957 COLONOSCOPY - COLON CA SCREENING 1957 CT COLONOGRAPHY - COLON CA SCREENING 1957 Colorectal Cancer Screening 1957 FIT - COLON CA SCREENING 1957 FLEX SIG - COLON CA SCREENING 1957 MAMMOGRAM 1955 MEDICARE AWV 12 MONTHS 1957 HEPATITIS C SCREENING 04/22/1975 DTAP/TDAP/TD VACCINES (1 - Tdap) 1976 PNEUMOCOCCAL VACCINE 50+ (1 of 1 - PCV) 2007 ZOSTER VACCINE (1 of 2) 2007 DEPRESSION SCREENING 06/27/2024 COVID-19 VACCINE (1 - 2024-2 6 season) 2025 INFLUENZA VACCINE (#1) 2025 05/08/2018 Respiratory Syncytial Virus (RSV) Vaccine Pt: or over 60 yrs (1 - 1-dose 75+ series) 2032 HEPATITIS B VACCINE Aged Out No longe [...] on file Relation to Subscriber:Not on file Name:ERIKA PICKENS Subscriber ID:Not on file (Home) Address: [address] [place] [id number] Payer ID:Not on file Group ID:Not on file Type:Self Pay Address: [place], [place] Care Teams Keypunch Operator Relationship Specialty Start Date End Date Hernan Yuan MD [address] [place] [address] PCP - General Internal Medicine 08/22/17
--- OUTSIDE RECORDS SUMMARY | 2025-06-21 10:10 | XMS_ITS | Clinical Summary ---
Author Organization [facility] [employer] Address [address] [place] [address] Care Team Providers Care Field Ironworker Name Role Phone Unavailable Primary Care Provider [...] K ORAL) Take by mouth. Active Fish Oil-[place]-3 Fatty Acids 300-500 mg Capsule Take by mouth. Active Active Problems No known active problems Encounters Date Type Department Care Team Description 06/18/2025 External Device Data STL ABSTRACTION Provider, Abstract 06/18/2025 External Device Data STL ABSTRACTION Provider, Abstract 05/14/2025 External Device Data STL ABSTRACTION Provider, Abstract 04/24/2025 External Device Data STL ABSTRACTION Provider, Abstract 04/24/2025 External Device Data STL ABSTRACTION Provider, Abstract 04/17/2025 External Device Data STL ABSTRACTION Provider, Abstract 04/16/2025 External Device Data STL ABSTRACTION Provider, Abstract [...] Sign Reading Time Taken Comments Blood Pressure 107/62 02/12/2025 2:20 PM CDT Pulse 77 02/12/2025 2:20 PM CDT Temperature 36.3 C (97.4 F) 02/12/2025 2:20 PM CDT Respiratory Rate 15 02/12/2025 2:20 PM CDT Oxygen Saturation 96% 02/12/2025 2:20 PM CDT Inhaled Oxygen Concentration - - Weight 72.8 kg (160 lb 6.4 oz) 02/12/2025 2:20 P M CDT Height 167.6 cm (5' 6) 02/14/2024 1:12 PM CDT Body Mass Index 25.89 02/14/2024 1:12 PM CDT Plan of Treatment Upcoming Encounters Date Type Department Care Team (Late st Contact Info) Description 08/15/2025 10:15 AM ENGINEERING LECTURER Office Visit [facility] Oncology and Hematology - René [address] [place] [address] Chas Alexander MD [address] [place] [address] Health Maintenance Due Date Last Done Comments Pre-Diabetes and Diabetes Screening 1957 DTAP/TDAP/TD VACCINES (1 - Tdap) 1976 COLORECTAL SCREENING 2002 Colorectal Cancer Screening 2002 FIT-DNA Q 3 years 2002 FIT/FOBT Q 1 year 2002 Flex Sig/CT Colonography Q 5 years 2002 PNEUMOCOCCAL VACCINE 50+ YEA RS (1 of 1 - PCV) 2007 INFLUENZA VACCINE (#1) 2025 , 04/27/2023, 04/02/2022, Additional history exists COVID-19 Vaccine (4 - 2024-2 6 season) 2025 05/10/2022, 06/04/2021, 09/04/2020 BREAST CANCER SCREENING 06/21/2025 06/21/20 24, 06/21/2024, 06/18/2024, Additional history exists OSTEOPOROSIS SCREENING 05/06/2028 05/06/2023 RSV VACCINE (60+ or ) (1 - 1-dose 75+ series) 2032 ZOSTER VACCINE Completed 07/20/2024, 05/14/2024 Procedures Procedure Name Priority Date/Time Associated Diagnosis Comments MAMMOGRAM REPORT Routine 06/18/2024 2:00 PM ENGINEERING LECTURER from Last 3 Months or Most Recently Relevant to Health Maintenance Results * MAMMOGRAM REPORT (06/18/2024 2:00 PM ENGINEERING LECTURER) us Provider Scanning MAMMO ORDERABLES Final Result from Last 3 Months or Most Recently Relevant to Health Maintenance Insurance MEDICARE PART A AND B [employer]
--- OUTSIDE RECORDS SUMMARY | 2025-06-21 10:10 | XMS_ITS | Clinical Summary ---
Author Organization [facility] Address [facility] [place] [address] Care Team Providers Care Early Learning Teacher Name Role Phone Baldev Knox MD Unavailable [phone] Sunshine Stubbs Primary Care Provider [phone] Allergies Active Allergy Reactions Criticality Noted Date Comments Vancomycin Itching Low 01/20/2021 Facial itching, facial redness and scalp itching Medications pravastatin 40 MG tablet Take 40 mg by mouth daily. 1 03/21/2017 Active [place]-3 Fatty Acids (OMEGA-3 PLUS) 1000 MG Cap [...] Active vitamin D3, cholecalciferol , 1.25 MG (88147 UT) capsule TK 1 C PO ONCE [...] 06/07/2017 Assessment & Plan (06/08/2017 12:14 PM RESORT KEEPER): Chest Pain R/O: Acute; stable VS WNL; [...] 06/07/2017 Assessment & Plan (06/08/2017 7:51 AM RESORT KEEPER): Chronic; stable Hx of depression, on Citalopram 30 mg daily for 2 weeks; previously on 40mg. No SI/HI. -Continue 30 mg daily -F/u w/ PCM Abnormal EKG 06/07/2017 Immunizations Immunization Administration Dates Next Due Flublok (Quadrivalent) 05/08/2018 Flucelvax 6 Months+ (Prefill ed Syringe) 04/05/2019 Fluzone 6 Months+ Quad (0.5 mL Prefilled Syringe) 04/02/2022,03/15/2020 Influenza (Generic) 05/08/2018, 4,06/06/2013,2011 Influenza Adult (Generic) 04/01/2021,03/15/2020, 04/05/2019 DARIANA ([employer] COVID-19 AD26 VACCINE 0.5 ML IM SUSP [...] on file Legal Sex Female 2:54 PM RESORT KEEPER Gender Identity Not on file Sexual Orientation [...] P M CDT Height 168.9 cm (5' 6.5) 04/02/2022 2:09 PM CDT Body Mass Index 25.34 04/02/2022 2:09 PM CDT Plan of Treatment Health Maintenance Due Date Last Done Comments Hepatitis C 1975 DTaP, Tdap and Td Vaccines (1 - Tdap) 1976 Mammogram Screening 1997 Pneumococcal Vaccine: 50+ Years (1 of 1 - PCV) 2007 Zoster Vaccines (1 of 2) 2007 Annual Medicare Wellness Visit 2022 Dexa Scan (General) 2022 PHQ-2 (Physician [place]) 06/27/2024 COVID-19 Vaccine (2 - season) 2025 09/04/2020 Influenza Adult (#1) 2025 04/02/2022, 04/01/2021, 03/15/2020, Additional history exists Colorectal Cancer Screening Colonoscopy (10 Years) 10/10/2029 Postponed from 1957 (Awaiting Documentation) RSV Immunization or 60+ Years (1 - 1-dose 75+ series) 2032 Hepatitis A Vaccines Aged Out No long er eligible based on patient's age to complete this topic Meningococcal B Vaccine Aged Out No l onger eligible based on patient's age to complete this topic Meningococcal Vaccine Aged Out No nathan renee eligible based on patient's age to complete this topic RSV Immunizations Under 20 Months Aged Out No longer eligible based on patient's age to complete this topic Insurance MEDICARE [facility] Advance Directives * Full Code (Latest Code Status on File) Date Activated Date Inactivated Comments 06/17/2017 2:17 PM 06/17/2017 8:11 PM * Full Code Date Activated Date Inactivated Comments 06/07/2017 9:27 PM 06/08/2017 6:51 PM Care Teams Early Learning Teacher Relationship Specialty [place] [address] [place] [address] PCP - General PHYSICIAN ADMINISTRATIVE EXECUTIVE 09/09/20 Baldev Knox MD [facility]. [address] [address] [place] Operating Room Assistant CARDIOVASCULAR DISEASE 07/18/17
--- OUTSIDE RECORDS SUMMARY | 2025-06-21 10:10 | XMS_ITS | Patient Health Record ---
Author Organization [facility] [employer] Address [address] [facility] [address] [place] [address] Care Team Providers Care Assessment Director Name Role Phone Adrien Sherman Unavailable [phone] Reason For Referral No Information Medications Medication SIG (Take, Route, Frequency, Duration) Notes Start Date End Date Status Citalopram Hydrobromide 20 MG Tablet Oral Active Citalopram Hydrobromide 40 MG Tablet Oral Active Pravastatin Sodium 40 MG Tablet Oral Active Plan Of Treatment No Information
--- OUTSIDE RECORDS SUMMARY | 2025-06-21 10:11 | XMS_ITS | Encounter Summary ---
Author Organization [facility] Address [address] [place] [id number] Care Team Providers Care Sticker Hand Name Role Phone Hernan Yuan MD Primary Care Provider [phone] Baldev Knox MD Unavailable [phone] Sunshine Stubbs Primary Care Provider [phone] Encounter Details Date Type Department Care Team (Late st Contact Info) Description 06/23/2017 Abstract [facility] at [address] [id number] Hussein Dickinson MA Social History Tobacco Use Types Packs/Day Years Used Date Smoking Tobacco: Never Smokeless Tobacco: Never Alcohol Use Standard Drinks/Week Comments No 0 (1 standard drink = 0.6 oz pur e alcohol) Comments No Sex and Gender Information Value Date Recorded Sex Assigned at Not on file Legal Sex Female 2:54 PM FINANCIAL SALES CONSULTANT Gender Identity Not on file Sexual Orientation [...] Result * THYROXINE, FREE (FT4) (10/07/2017) Pathologist [facility] FREE T4 1.2 10/07/2017 us Doc [facility] LABORAT[facility] Final Result * THYROID STIM HORMONE, TSH (10/07/2017) Pathologist [facility] TSH 0.98 10/07/2017 us Doc [facility] LABORAT[facility] Final Result * COMPREHENSIVE METABOLIC PANEL (10/07/2017) Pathologist [facility] SODIUM S/P/B 143 POTASSIUM S/P/B 5.3 CO2 [...] Final Result * LIPID PANEL (10/07/2017) Pathologist [facility] CHOLESTEROL 171 HDL 59 TRIGLYCERIDES 103 NON [...] on filedocumented in this encounter Care Teams Sticker Hand Relationship Specialty Start Date End Date Hernan Yuan MD [address] [id number] PCP - General INTERNAL MEDICINE 06/07/17 09/08/20 [place] [address] [place] [address] PCP - General PHYSICIAN SEMI AUTOMATIC SEWING MACHINE OPERATOR 09/09/20 Baldev Knox MD [address] [facility]. [address] [address] [place] Survey Research Analyst CARDIOVASCULAR DISEASE 07/18/17 documented as of this encounter
--- OUTSIDE RECORDS SUMMARY | 2025-06-21 10:11 | XMS_ITS | Clinical Summary ---
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 Assessment & Plan (08/03/2021 9:30 AM SPRAY CEMENTER): Ms. 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 Powers in 4.5 months with Flexion/Extension Lumbar spine films. Lumbar stenosis without neur ogenic claudication 12/11/2020 04/29/2021 Spondylolisthesis of lumbar region 10/07/2020 04/29/2021 Overview (10/07/2020): Added automatically from request for surgery [id number] Immunizations Immunization Administration Dates Next Due Influenza, Quadrivalent, Mima l Culture-based MDCK, Preservative Free, Antibiotic Free, Intramuscular 04/05/2019 Influenza, Quadrivalent, Rec ombinant, Egg Free, Preservative Free, Intramuscular 05/08/2018 Influenza, Quadrivalent, Spl it, Preservative Free, Intramuscular 04/01/2021,03/15/2020 Influenza, Trivalent, IM (MDV) 06/06/2012 Influenza, Unspecified 04/23/2014,06/06/2013 Surgical History Surgery Date Site/Laterality Comments OR UNLISTED PROCEDURE ABDOMEN PERITONEUM & OMENTUM Hernia Repair - umbilical 1961, 2002 (Added by TW Conv) OR UNLISTED PROCEDURE BREAST Breast Surgery - biopsy 1994 (Added by TW Conv) OR TONSILLECTOMY PRIMARY/SECONDARY <AGE 12 Tonsillectomy - (Added [...] Never Smokeless Tobacco: Never Social Connection and Isolation Panel Answer Date Recorded In a typical week, how many times do you talk on the phone with family, friends, or neighbors? More than three times a week 12/25/2021 How often do you get togethe r with friends or relatives? Three times a week 12/25/2021 How often do you attend [facility] or moravian services? 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 Not on file No t on file [...] A M CDT Height 167.6 cm (5' 6) 12/24/2021 6:59 AM CDT Body Mass Index 25.58 12/24/2021 6:59 AM CDT Plan of Treatment Not on file Medical Devices Implanted Type Area Valve Machine Operator Device Identifier Shelf Expiration Date Model / Serial / Lot [employer] [id number] Inqu Paste Mix Plus Ironworker Wire Fence Erector 10cc Bone Graft Hyaluronic Acid Poly - [id number] Implanted:Qty: 1 on 12/11/2020 by Mega Powers MD at [facility] N/A: Spine Lumbar [employer] [id number] 05/01/2022 [id number] / / [id number] Core Link [id number] Kimball 6.5mm 40mm Spine Pedicle Screw Bone 5500 Series - [id number] Implanted:Qty: 6 on 12/11/2020 by Mega Powers MD at [facility] N/A: Spine Lumbar Core Link [id number] / / Core Link [id number] Kimball Screw Set 5500 Series - [id number] Implanted:Qty: 6 on 12/11/2020 by Mega Powers MD at [facility] N/A: Spine Lumbar Core Link [id number] / / Core Link [id number] Kimball 5.5mm 65mm Line Prebent Vadim Spinal Nonsterile 5500 Series - [id number] Implanted:Qty: 1 on 12/11/2020 by Mega Powers MD at [facility] N/A: Spine Lumbar Core Link [id number] / / Core Link [id number] Kimball 5.5mm 70mm Line Prebent Vadim Spinal Nonsterile 5500 Series - [id number] Implanted:Qty: 1 on 12/11/2020 by Mega Powers MD at [facility] N/A: Spine Lumbar Core Link [id number] / / Core Link Cage F3d Lateral 18mm X 50mm X 12mm 8 Degree [id number] - [id number] Implanted:Qty: 1 on 12/24/2021 by Mega Powers MD at [facility] N/A: Spine Lumbar Core Link [id number] 20 09/09/2024 [id number] / / [id number] Core Link Cage F3d Lateral 18mm X 50mm X 12mm 8 Degree [id number] - [id number] Implanted:Qty: 1 on 12/24/2021 by Mega Powers MD at [facility] N/A: Spine Lumbar Core Link [id number] 20 09/09/2024 [id number] / / [id number] Allograft Bone Putty 2.5cc 700-025 - [id number] Implanted:Qty: 1 on 12/24/2021 by Mega Powers MD at [facility] N/A: Spine Lumbar [employer] 06/26/2024 700-025 / / [id number] Allograft Bone Putty 2.5cc 700-025 - [id number] Implanted:Qty: 1 on 12/24/2021 by Mega Powers MD at [facility] N/A: Spine Lumbar [employer] 06/26/2024 700-025 / / [id number] Allograft Bone Putty 2.5cc 700-025 - [id number] Implanted:Qty: 1 on 12/24/2021 by Mega Powers MD at [facility] N/A: Spine Lumbar [employer] 06/26/2024 700-025 / / [id number] Insurance [facility] CLAIMS COMMERCIAL GENERIC Member Subscriber Plan / Payer (Ef fective 2020-Present) Name:Erika Pickens Relation to Subscriber:Spouse Name:DEREK PICKENS Date of :1899 (Home) Address: [address] [place] [address] Payer ID:[id number] Type:COMMERCIAL Address: [address] CLAIMS COMMERCIAL GENERIC [facility] CLAIMS Advance Directives For more information, please contact: [phone] * Full Code (Latest Code Status on File) Date Activated Date Inactivated Comments 12/24/2021 12:46 PM 12/25/2021 4:13 PM * Full Code Date Activated Date Inactivated Comments 12/11/2020 11:05 AM 12/12/2020 4:52 PM Care Teams Council Member Relationship Specialty Start Date End Date Hernan Yuan MD PCP - General Internal Medicine 09/03/20
== END 2025-06-21 10:07 | disposition home or self-care (01) ==
LOC: ANHFOHIMG 10:08
PROVIDERS: PCP Internal Medicine; Visit Provider Internal Medicine
DX: Z12.31 Encounter for screening mammogram for malignant neoplasm of breast (principal)
CPT/HCPCS: 77063; 77067